=== PATIENT | female | born 1950 | race Caucasian/White ===

== ENCOUNTER 2016-12-25 15:34 | Emergency (ER) | payer OTHER ==
[~2016-12-25] VITALS: Ht 165.1 cm; Wt 80.0 kg
[2016-12-25 15:37] VITALS: BP 164/89; PULSE 74; RESP 20; TEMP 98.7
--- NOTE | 2016-12-25 15:41 | PD ---
Physical Exam Date Seen by Provider: Dec 25, 2016 Time Seen by Provider: 15:39 Data Data Last Documented VS Vital Signs Date Time Temp Pulse Resp B/P (MAP) Pulse Ox O2 Delivery O2 Flow Rate FiO2 12/25/16 15:37 98.7 74 20 164/89 (114) [facility] Supervised Visit with KALI: No Narrative Course 66-year-old female presents to the ED for evaluation of head injury just before presentation. Patient states that "a table fell on my head." Denies LOC. Patient takes an aspirin daily. Vitals reviewed. Patient seen in triage, awaiting bed placement. Ivis Guidry Dec 25, 2016 15:41
[2016-12-25] MEDS ORDERED: LAMO100 PO (17:27)
[2016-12-25] MEDS ORDERED: OXYB5TAB10 PO (17:27)
[2016-12-25] MEDS ORDERED: FOSA70TA PO (17:27)
[2016-12-25] MEDS ORDERED: VENL150T PO (17:27)
[2016-12-25] MEDS ORDERED: MIRTA15 PO (17:27)
[2016-12-25] MEDS ORDERED: LISI30TA4 PO (17:27)
[2016-12-25] MEDS ORDERED: CLON2TAB PO (17:27)
[2016-12-25] MEDS ORDERED: BACL10TA PO (17:27)
[2016-12-25] MEDS ORDERED: EPIN1INJ17 IM (17:27)
[2016-12-25] MEDS ORDERED: RISP2TAB37 PO (17:27)
[2016-12-25] MEDS ORDERED: POTA-243 PO (17:27)
[2016-12-25] MEDS ORDERED: SIMV20TA PO (17:27)
[2016-12-25] MEDS ORDERED: IBUP-1129 PO (17:27)
[2016-12-25] MEDS ORDERED: NORC5TAB PO (17:27)
[2016-12-25] MEDS ORDERED: CALC1TAB12 PO (17:27)
--- NOTE | 2016-12-25 18:01 | PD ---
HPI Chief Complaint: Skin Problem Time Seen by Provider: 17:33 Travel History International Travel<30 days: No Contact w/Intl Traveler<30days: No Traveled to known affect area: No History of Present Illness HPI 66-year-old female here for evaluation of a small laceration to her left occipital scalp. Patient was moving furniture into storage when a small end table fell from a box and struck the left side of her head. She denies loss of consciousness. Patient is not anticoagulated. Patient did not fall to the ground. She denies headache, visual changes, neck pain. Tetanus immunization is up-to-date. PFSH Past Medical History Medical History: Denies Significant Hx Social History Tobacco Use: No Allergies-Medications (Allergen,Severity, Reaction): Coded Allergies: cephalexin (Verified Allergy, Severe, 12/25/16) Reported Meds & Prescriptions Reported Meds & Active Scripts Active Reported Epinephrine Inj (Epinephrine) 0.3 Mg/0.3 Ml Pfpen 0.3 Mg IM ONCE PRN Klor-Con 10 (Potassium Chloride) 10 Meq Tab 10 Meq PO DAILY Calcium 500 +D (Calcium Carbonate-Cholecalciferol) 500-400 Mg-Unit Tab 1 Tab PO BID Fosamax (Alendronate Sodium) 70 Mg Tab 70 Mg PO Q7D Ditropan (Oxybutynin Chloride) 5 Mg Tab 5 Mg PO Q12HR [place] (Hydrocodone-Acetaminophen) 5-325 mg Tab 1 Tab PO Q4H PRN Clonazepam 2 Mg Tab 2 Mg PO BID Simvastatin 20 Mg Tab 20 Mg PO DAILY Simvastatin 20 Mg Tab 20 Mg PO DAILY Lisinopril 30 Mg Tab 30 Mg PO DAILY Lamictal (Lamotrigine) 100 Mg Tab 100 Mg PO BID Baclofen 10 Mg Tab 10 Mg PO TID Motrin Ib (Ibuprofen) 200 Mg Tablet 800 Mg PO TID Risperdal (Risperidone) 2 Mg Tab 2 Mg PO DAILY Venlafaxine ER 24 HR (Venlafaxine HCl) 150 Mg Tab 150 Mg PO DAILY Mirtazapine 15 Mg Tab 15 Mg PO HS Review of Systems Except as stated in HPI: all other systems reviewed are Neg Physical Exam Narrative GENERAL: Well-nourished, well-developed patient. SKIN: Focused skin assessment warm/dry. 2 cm laceration left occipital scalp. Bleeding well controlled. No crepitus or palpable scalp fracture. HEAD: Normocephalic. EYES: No scleral icterus. No injection or drainage. NECK: Supple, trachea midline. No JVD or lymphadenopathy. No cervical midline tenderness. CARDIOVASCULAR: Regular rate and rhythm without murmurs, gallops, or rubs. RESPIRATORY: Breath sounds equal bilaterally. No accessory muscle use. GASTROINTESTINAL: Abdomen soft, non-tender, nondistended. MUSCULOSKELETAL: No cyanosis, or edema. Data Data Last Documented VS Vital Signs Date Time Temp Pulse Resp B/P (MAP) Pulse Ox O2 Delivery O2 Flow Rate FiO2 12/25/16 15:37 98.7 74 20 164/89 (114) [facility] Medical Decision Making Medical Screen Exam Complete: Yes Emergency Medical Condition: Yes Differential Diagnosis Scalp laceration, scalp hematoma, skull fracture, ICH Narrative Course 66-year-old female presents emergency department for evaluation of a 2 cm laceration to the left occipital scalp. Patient reports a small end table fell onto her head while putting furniture and sort. She denies loss of consciousness. She denies headache. She has no neck pain. She is not anticoagulated. The laceration was stapled closed wound precautions discussed. Closed head injury precautions discussed. Patient verbalizes understanding and agrees to plan Procedures Procedure Narrative LACERATION LOCATION: Left occipital Scalp LENGTH: 2 cm NUMBER OF STITCHES/CLARA: 2 clara REPAIR: The area of the laceration was prepped with Betadine and sterilely draped. The wound was copiously irrigated and explored without evidence of foreign body, tendon injury or neurovascular injury. The wound was closed using [Clara]. This was a [single] layer repair. A sterile dressing was applied. The patient was advised to keep the dressing clean and dry. Patient tolerated the procedure well. Diagnosis Primary Impression: Scalp laceration Qualified Codes: S01.01XA - Laceration without foreign body of scalp, initial encounter Referrals: [facility] Primary Care Physician Additional Instructions: [place] need to be removed in 10 days. He can take [id number] Tylenol as needed for pain or discomfort. Return to the emergency department if he developed severe headache, visual changes, confusion, weakness or loss of sensation in the 70s. Disposition: 01 DISCHARGE HOME Condition: Stable Gely Gomez Dec 25, 2016 18:01
== END 2016-12-25 18:17 | disposition home or self-care (01) ==
LOC: NEPD 15:34
DX: S01.01XA Laceration without foreign body of scalp, initial encounter (principal); W22.03XA Walked into furniture, initial encounter; Z79.899 Other long term (current) drug therapy; Z88.8 Allergy status to other drugs, medicaments and biological substances
CPT/HCPCS: 12001

== ENCOUNTER 2017-06-24 10:26 | Emergency (ER) | payer OTHER ==
[~2017-06-24] VITALS: Ht 167.6 cm; Wt 80.0 kg
[~2017-06-24 10:26] MED LIST: BACL10TA PO; CALC1TAB12 PO; CLON2TAB PO; EPIN1INJ17 IM; FOSA70TA PO; IBUP-1129 PO; KLOR10TA PO; LAMO100 PO; LISI30TA4 PO; MIRTA15 PO; NORC5TAB PO; OXYB5TAB8 PO; RISP2TAB37 PO; SIMV20TA PO; VENL150T PO
[2017-06-24 11:20] VITALS: BP 131/84; PULSE 97; RESP 16; TEMP 98.1; O2SAT 94
[2017-06-24] MEDS ORDERED: AUGM875T3 PO (12:25)
[2017-06-24] MEDS ORDERED: FLUT1SPR5 EACH NARE (12:27)
[2017-06-24] MEDS ORDERED: DOXY100C PO (12:27)
--- NOTE | 2017-06-24 12:28 | PD ---
HPI Chief Complaint: ENT Complaint Time Seen by Provider: 12:11 Travel History International Travel<30 days: No Contact w/Intl Traveler<30days: No Traveled to known affect area: No History of Present Illness HPI 67-year-old female here with sinus pain and pressure 2 weeks. She is reporting purulent nasal discharge. Denies fever or chills. History of sinus infections. Symptom severity is moderate. Unrelieved by OTC sinus cold and flu. PFSH Past Medical History Medical History: Denies Significant Hx Anxiety: Yes Depression: Yes High Cholesterol: Yes Hypertension: Yes Musculoskeletal: Yes (CHRONIC BACK PAIN) Influenza Vaccination: Yes Past Surgical History Appendectomy: Yes Cholecystectomy: Yes Social History Alcohol Use: Yes (BEER DAILY) Tobacco Use: No Substance Use: No Allergies-Medications (Allergen,Severity, Reaction): Coded Allergies: cephalexin (Verified Allergy, Severe, RASH, 06/24/17) Reported Meds & Prescriptions Reported Meds & Active Scripts Active Reported Epinephrine Inj (Epinephrine) 0.3 Mg/0.3 Ml Pfpen 0.3 Mg IM ONCE PRN Klor-Con 10 (Potassium Chloride) 10 Meq Tab 10 Meq PO DAILY Calcium 500 +D (Calcium Carbonate-Cholecalciferol) 500-400 Mg-Unit Tab 1 Tab PO BID Fosamax (Alendronate Sodium) 70 Mg Tab 70 Mg PO Q7D Ditropan (Oxybutynin Chloride) 5 Mg Tab 5 Mg PO Q12HR [place] (Hydrocodone-Acetaminophen) 5-325 mg Tab 1 Tab PO Q4H PRN Clonazepam 2 Mg Tab 2 Mg PO BID Simvastatin 20 Mg Tab 20 Mg PO DAILY Simvastatin 20 Mg Tab 20 Mg PO DAILY Lisinopril 30 Mg Tab 30 Mg PO DAILY Lamictal (Lamotrigine) 100 Mg Tab 100 Mg PO BID Baclofen 10 Mg Tab 10 Mg PO TID Motrin Ib (Ibuprofen) 200 Mg Tablet 800 Mg PO TID Risperdal (Risperidone) 2 Mg Tab 2 Mg PO DAILY Venlafaxine ER 24 HR (Venlafaxine HCl) 150 Mg Tab 150 Mg PO DAILY Mirtazapine 15 Mg Tab 15 Mg PO HS Review of Systems Except as stated in HPI: all other systems reviewed are Neg General / Constitutional: No: Fever Eyes: No: Visual changes HENT: Positive: Congestion Cardiovascular: No: Chest Pain or Discomfort Respiratory: No: Shortness of Breath Gastrointestinal: No: Abdominal Pain Genitourinary: No: Dysuria Musculoskeletal: No: Pain Physical Exam Narrative GENERAL: Alert well-appearing 67-year-old female SKIN: Warm and dry. HEAD: Normocephalic. EYES: No injection or drainage. Ear/nose/throat: +TTP frontal and maxillary sinuses NECK: Supple, trachea midline. No lymphadenopathy. CARDIOVASCULAR: Regular rate and rhythm without murmurs, gallops, or rubs. RESPIRATORY: Breath sounds equal bilaterally. No accessory muscle use. GASTROINTESTINAL: Abdomen soft, non-tender, nondistended. Data Data Last Documented VS Vital Signs Date Time Temp Pulse Resp B/P (MAP) Pulse Ox O2 Delivery O2 Flow Rate FiO2 06/24/17 11:20 98.1 97 16 131/84 (100) 94 MDM Medical Decision Making Medical Screen Exam Complete: Yes Emergency Medical Condition: Yes Differential Diagnosis Sinusitis, allergic rhinitis, URI Narrative Course 67-year-old female here with sinusitis. She is well-appearing. Allergies to Keflex. She'll be treated with doxycycline Flonase. Diagnosis Primary Impression: Sinusitis Qualified Codes: J01.90 - Acute sinusitis, unspecified Referrals: Primary Care Physician Additional Instructions: Medication as directed. Follow-up the primary doctor. Return if he had new or worsening symptoms. Scripts Fluticasone Nasal [place] (Flonase Nasal [place]) 50 Mcg/Act [place] 50 MCG EACH NARE BID for Allergies, #1 BOTTLE 0 Refills Prov: Gely Gomez 06/24/17 Doxycycline Hyclate (Doxycycline Hyclate) 100 Mg Cap 100 MG PO BID for Infection for 7 Days, #14 CAP 0 Refills Prov: Gely Gomez 06/24/17 Disposition: 01 DISCHARGE HOME Condition: Stable Gely Gomez Jun 24, 2017 12:28
== END 2017-06-24 12:49 | disposition home or self-care (01) ==
LOC: PHEFT 10:26
DX: J32.9 Chronic sinusitis, unspecified (principal); F41.9 Anxiety disorder, unspecified; F32.9 Major depressive disorder, single episode, unspecified; E78.00 Pure hypercholesterolemia, unspecified; I10 Essential (primary) hypertension; Z79.899 Other long term (current) drug therapy; Z88.8 Allergy status to other drugs, medicaments and biological substances
CPT/HCPCS: 99283

== ENCOUNTER 2017-09-15 15:17 | Emergency (ER) | payer OTHER ==
[~2017-09-15] VITALS: Ht 167.6 cm; Wt 83.7 kg
[~2017-09-15 15:17] MED LIST changes: +DOXY100C PO; +FLUT1SPR5 EACH NARE
[2017-09-15 15:23] VITALS: BP 179/95; PULSE 70; RESP 18; TEMP 98.3; O2SAT 95
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
[2017-09-15] MEDS ORDERED: DAILTAB38 PO (15:57)
[2017-09-15] MEDS ORDERED: CLON0.5T PO (15:57)
[2017-09-15] MEDS ORDERED: FLUT50SP EACH NARE (15:57)
[2017-09-15] MEDS ORDERED: AMLO5TAB2 PO (15:57)
[2017-09-15] MEDS ORDERED: ASPI1TAB57 PO (15:57)
[2017-09-15] MEDS ORDERED: FIBE625T10 PO (15:57)
[2017-09-15] MEDS ORDERED: OMEP20TA93 PO (15:57)
[2017-09-15] MEDS ORDERED: HYDR25TA5 PO (15:57)
[2017-09-15] MEDS ORDERED: DOCU100C15 PO (15:57)
[2017-09-15] MEDS ORDERED: QUET-86 PO (15:57)
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
[2017-09-15] MEDS ORDERED: PERC5TAB12 PO (16:31)
== END 2017-09-15 16:56 | disposition home or self-care (01) ==
LOC: PHEFT 15:17
DX: S52.602A Unspecified fracture of lower end of left ulna, initial encounter for closed fracture (principal); S20.219A Contusion of unspecified front wall of thorax, initial encounter; V47.0XXA Car driver injured in collision with fixed or stationary object in nontraffic accident, initial encounter; Y92.481 Parking lot as the place of occurrence of the external cause; I10 Essential (primary) hypertension; E78.00 Pure hypercholesterolemia, unspecified; F32.9 Major depressive disorder, single episode, unspecified; F41.9 Anxiety disorder, unspecified; Z88.1 Allergy status to other antibiotic agents; Z79.899 Other long term (current) drug therapy
CPT/HCPCS: 29125; 71045; 73090

== ENCOUNTER 2018-01-26 12:08 | Inpatient (IN) ==
[2018-01-26] MEDS ORDERED: Morphine Inj 4 MG/ML Vial IV.PUSH ONE (13:18)
--- NOTE | 2018-01-26 13:34 | ED ---
HPI General Chief Complaint: Extremity Injury, Lower Stated Complaint: Broken Leg Complaint Time Seen by Provider: 01/26/18 13:03 Source: patient Mode of arrival: wheelchair Limitations: no limitations History of Present Illness HPI Narrative: 67-year-old female with PMH of HTN, GERD, HLD, anxiety, depression presents to the ED requesting admission for surgery. The patient states that she had a fall a few days ago, had pain in the left leg. She denies hitting her head or loss of consciousness in the fall. She states that she recently had a bone graft taken from the left leg and placed in the left arm. On presentation she complains of 6/10 pain in the left leg, aching, no alleviating or exacerbating factors reported. She states that she last took Percocet around 6 AM. She denies headache, dizziness, fever, chills, chest pain , palpitations, shortness of breath, abdominal pain, nausea, vomiting, dysuria. She states that she has not had anything to eat today, had a cup of water in the waiting room. She does not take blood thinners. She saw her orthopedist, Dr. De Luna, today and was told to come the emergency room for admission. Related Data Allergies Allergy/AdvReac Type Severity Reaction Status Date / Time cephalexin Allergy Severe RASH Verified 09/15/17 15:23 Review of Systems ROS: all other systems reviewed are negative PMFSH Social History Social History Recent Travel in [facility] within the Last 8 Weeks: No Recent Out of Country Travel within the Last 8 Weeks: No Exam Narrative Exam Narrative: GENERAL: Well-nourished, well-developed white female no acute distress. SKIN: Focused skin assessment warm/dry. HEAD: Atraumatic. Normocephalic. EYES: Pupils equal and round. No scleral icterus. No injection or drainage. ENT: No nasal bleeding or discharge. Mucous membranes pink and moist. NECK: Trachea midline. No JVD. CARDIOVASCULAR: Regular rate and rhythm. No murmur appreciated. RESPIRATORY: No accessory muscle use. Clear to auscultation. Breath sounds equal bilaterally. GASTROINTESTINAL: Abdomen soft, non-tender, nondistended. Hepatic and splenic margins not palpable. MUSCULOSKELETAL: No obvious deformities. No clubbing. No cyanosis. No edema. Left arm and left leg in splints. Neurovascularly intact distally on each extremity. NEUROLOGICAL: Awake and alert. No obvious cranial nerve deficits. Motor grossly within normal limits. Normal speech. PSYCHIATRIC: Appropriate mood and affect; insight and judgment normal. Course Initial Documented Vital Signs Temperature 98.5 F 01/26/18 12:19 Pulse Rate 96 H 01/26/18 12:19 Respiratory Rate 18 01/26/18 12:19 Blood Pressure 109/71 01/26/18 12:19 Pulse Oximetry 95 01/26/18 12:19 Last Documented Vital Signs Temperature 98.5 F 01/26/18 12:19 Pulse Rate 96 H 01/26/18 12:19 Respiratory Rate 18 01/26/18 12:19 Blood Pressure 109/71 01/26/18 12:19 Pulse Oximetry 95 01/26/18 12:19 Medical Decision Making MDM Narrative Medical decision making narrative: 67-year-old female with PMH of HTN, anxiety depression, HLD presents to the ED for evaluation of orthopedic injury. Patient states that she just had an outpatient procedure done on her left arm that required a bone graft from the left leg. She states that she had a fall yesterday, saw her orthopedic today and was told to come to the hospital for admission. Vitals reviewed. On exam the left upper and lower extremity are both in splints, neurovascularly intact distally. I spoke with Dr. Loredo. He states that the patient had outpatient imaging that reveals left tibia fracture. He plans surgery tomorrow. Preoperative testing and imaging ordered and pending. Patient is agreeable to admission. I spoke with who agrees to accept the patient to the medicine service. Please see orthopedic and medicine notes for disposition. Medical Screen Exam Complete: Yes Emergency Medical Condition: Yes Differential Diagnosis Differential Diagnosis: Fracture versus dislocation versus postoperative complication versus other Imaging Data Radiologist's impression: Chest X-Ray 01/26/18 13:18 CONCLUSION: 1. No evidence for infiltrate. 2. Nodular density right lower lobe. Nonemergent outpatient chest recommended. Discharge Plan Discharge Disposition Patient Disposition: 30 Still Patient Physicians Team ED Provider: Rodolfo Maldonado ED Midlevel Provider: Ivis Guidry Primary Care Provider: Giovana De La Fuente Status ED Status: Pending Admission
--- NOTE | 2018-01-26 13:48 | XR ---
EXAM DATE: 01/26/2018 1:44 PM EDT AGE/SEX: 67 years / Female INDICATIONS: Pre op chest to rule out pneumothorax, pneumonia or communicable disease. CLINICAL DATA: This is the patient's initial encounter. Patient reports that signs and symptoms have been present for 1 day and indicates a pain score of 0/10. MEDICAL/SURGICAL HISTORY: Hypertension. Fusion, lumbar. COMPARISON: [facility], CHEST SINGLE AP, 09/15/2017. . FINDINGS: A single AP view of the chest demonstrates the lungs to be symmetrically aerated without evidence of mass, infiltrate or effusion. There is however nodular density right lower lobe. The cardiomediastina l contours are unremarkable. Osseous structures are intact. Scoliosis and degenerative changes. CONCLUSION: 1. No evidence for infiltrate. 2. Nodular density right lower lobe. Nonemergent outpatient chest recommended. Electronically signed by: Darius Leslie MD 01/26/2018 1:46 PM EDT
[2018-01-26] MEDS ORDERED: Bisacodyl 10 MG Supp RECTAL PRN (13:57)
[2018-01-26] MEDS ORDERED: Acetaminophen 325 MG Tablet PO PRN (13:57)
[2018-01-26] MEDS: Sod Chloride 0.9% Inj 1,000 ML IV.CONT SCH (14:32)
--- NOTE | 2018-01-26 14:36 | XR ---
EXAM DATE: 01/26/2018 2:04 PM EDT AGE/SEX: 67 years / Female INDICATIONS: Right knee pain, fell CLINICAL DATA: This is the patient's initial encounter. Patient reports that signs and symptoms have been present for 2 days and indicates a pain score of 8/10. MEDICAL/SURGICAL HISTORY: Hypertension. Fusion, lumbar. COMPARISON: No prior exams available for comparison. FINDINGS: There are comminuted transverse fractures involving both the proximal tibial diaphysis and the fibula r neck. The distal fragment slightly posteriorly displaced on the lateral film. The patella is intact . The tibial articulating surfaces are unremarkable. CONCLUSION: Oblique fractures involving both the tibia and the fibula. Electronically signed by: Tj Mckinney MD 01/26/2018 2:34 PM EDT
[2018-01-26 14:53] LABS: Baso # (Auto) 0.1 th/mm3 (0.0-0.2); Baso % (Auto) 0.6 % (0.0-2.0); Eos # (Auto) 0.2 th/mm3 (0.0-0.4); Eos % (Auto) 2.2 % (0.0-4.0); Hematocrit 33.4 % (35.0-46.0); Hemoglobin 11.5 gm/dL (11.6-15.3); Lymph # (Auto) 1.3 th/mm3 (1.0-4.8); Lymph % (Auto) 13.9 % (9.0-44.0); Mean Corpuscular HGB Conc 34.5 % (32.0-36.0); Mean Corpuscular Volume 92.8 fL (80.0-100.0); Mean Platelet Volume 8.2 fL (7.0-11.0); Mono # (Auto) 0.9 th/mm3 (0.0-0.9); Mono % (Auto) 9.9 % (0.0-8.0); Neut # (Auto) 6.8 th/mm3 (1.8-7.7); Neut % (Auto) 73.4 % (16.0-70.0); Platelet Count 343 th/mm3 (150-450); Red Blood Count 3.61 mil/mm3 (4.00-5.30); Red Cell Distribution Width 13.5 % (11.6-17.2); White Blood Count 9.2 th/mm3 (4.0-11.0)
[2018-01-26 15:17] LABS: Alanine Aminotransferase 26 U/L (10-53); Albumin 3.9 g/dL (3.4-5.0); Alkaline Phosphatase 96 U/L (45-117); Anion Gap 10 meq/L (5-15); Aspartate Aminotransferase 35 U/L (15-37); Blood Urea Nitrogen 29 mg/dL (7-18); Calcium 9.7 mg/dL (8.5-10.1); Carbon Dioxide 28.2 meq/L (21.0-32.0); Chloride 90 meq/L (98-107); Glomerular Filtration Rate 36 mL/min (>89); Glucose,Random 99 mg/dL (74-106); Sodium 128 meq/L (136-145); Total Protein 8.2 g/dL (6.4-8.2)
[2018-01-26 15:34] LABS: Potassium 2.7 meq/L (3.5-5.1)
--- NOTE | 2018-01-26 16:21 | P.HP ---
History of Present Illness Service: Hospitalist Primary Care Physician: Giovana De La Fuente MD History of Present Illness: Ms Cervantes is a pleasant 67-year-old female with PMH of HTN, GERD, HLD, anxiety, depression who presented to the emergency department on 01/26/2018 on the advice of our orthopedic surgeon. She recently underwent a bone graft from her left leg to her left arm. She complains of significant pain in her left leg. She went to see her orthopedic surgeon who directed patient to the ED. Left knee x- ray shows oblique fractures. Patient denies any chest pain, shortness of breath , cough, fever, chills. Denies any abdominal pain, dysuria, hematuria. No changes in bowel or bladder habits. PMH: Hypertension, hyperlipidemia, anxiety/depression PSH: Back surgery, bunionectomy Social history: Does not smoke, uses alcohol socially Family history: No family history of Alzheimer's or Parkinson's. Inpatient Certification: I certify that the inpatient services were ordered in accordance with Medicare regulations governing the order. This includes certification that hospital inpatient services are reasonable and necessary and in the case of services not specified as inpatient-only under 42 CFR 419.22(n), that they are appropriately provided as inpatient services in accordance to with the 2-midnight benchmark under 43 CFR 412.3(e) Estimated Total Length of Stay (Days): 3 Plans for Post Hospital Care: SNF Review of Systems All other systems reviewed negative except as stated in HPI PMFSH - History History Provided By: Patient - Medical History Medical History: Medical History (Last Reviewed 01/26/18 @ 16:57 by Ashley Palma RN) Failed allograft of bone H/O: hysterectomy - Tobacco History Second Hand Smoke Exposure: No Smoking Status: Never smoker - Alcohol History How Often Do You Have a Drink Containing Alcohol: 2 to 4 times a month - Substance Use History Substance History: No History of Abuse - Travel History Recent Travel in the [place] Within the Last 8 Weeks: No Recent Travel Out of the Country Within the Last 8 Weeks: No - Immunization History Tetanus Immunization: <5 Years Medications and Allergies Active Medications: Active Medications Acetaminophen (Tylenol) 650 mg PO Q4H PRN PRN Reason: Headache, fever, pain 1-4 Hydrocodone Bitart/Acetaminophen ([place] 5/325) 1 tab PO Q6H PRN PRN Reason: Pain 5-10 Al Hydroxide/Mg Hydroxide (Milk Of Magnesia Liq) 30 ml PO Q12H PRN PRN Reason: Mild Constipation Bisacodyl (Dulcolax Supp) 10 mg RECTAL DAILY PRN PRN Reason: SEVERE CONSITIPATION Sodium Chloride (Ns Inj) 1,000 mls @ 100 mls/hr IV.CONT .Q10H JOSUE Last Admin: 01/26/18 14:32 Dose: 100 mls/hr Lactulose (Lactulose Liq) 30 ml PO DAILY PRN PRN Reason: SEVERE CONSITIPATION Morphine Sulfate (Morphine Inj) 4 mg IV.PUSH Q4H PRN PRN Reason: BREAKTHROUGH PAIN Ondansetron HCl (Zofran Inj) 4 mg IV.PUSH Q6H PRN PRN Reason: NAUSEA OR VOMITING Sennosides (Senokot) 17.2 mg PO Q12H PRN PRN Reason: Moderate Constipation Allergies Allergy/AdvReac Type Severity Reaction Status Date / Time cephalexin Allergy Severe RASH Verified 01/26/18 15:37 Home Medications Medication Instructions Recorded Confirmed Type Calcium 600 + D(3) 600 mg PO DAILY 01/26/18 01/26/18 History alendronate 70 mg PO WEEKLY 01/26/18 01/26/18 History amlodipine 10 mg PO DAILY 01/26/18 01/26/18 History aspirin [Aspir-81] 81 mg PO DAILY 01/26/18 01/26/18 History baclofen 10 mg PO TID 01/26/18 01/26/18 History clonazepam 0.5 mg PO BID 01/26/18 01/26/18 History docusate sodium 100 mg PO DAILY 01/26/18 01/26/18 History fexofenadine [Sowmya Allergy] 180 mg PO DAILY 01/26/18 01/26/18 History ibuprofen 800 mg PO HS 01/26/18 01/26/18 History lamotrigine 100 mg PO BID 01/26/18 01/26/18 History mirtazapine 15 mg PO HS 01/26/18 01/26/18 History omeprazole 20 mg PO DAILY 01/26/18 01/26/18 History oxybutynin chloride 5 mg PO TID 01/26/18 01/26/18 History quetiapine 50 mg PO BID 01/26/18 01/26/18 History simvastatin 20 mg PO QPM 01/26/18 01/26/18 History venlafaxine 150 mg PO DAILY 01/26/18 01/26/18 History Exam Vital signs: Vital Signs 01/26/18 12:19 01/26/18 14:06 Temperature 98.5 F Pulse Rate 96 H 91 H Respiratory Rate 18 18 Blood Pressure 109/71 158/87 H Pulse Oximetry 95 97 Intake & Output 01/25/18 01/26/18 01/26/18 18:59 06:59 18:59 Weight 81.647 kg Narrative: GENERAL: This is a well-nourished, well-developed patient, in no apparent distress. SKIN: No rashes, ecchymoses or lesions. Warm and dry. HEAD: Atraumatic. Normocephalic. No temporal or scalp tenderness. EYES: Pupils equal round and reactive. No injection or drainage. ENT: Nose without bleeding, purulent drainage or septal hematoma. Airway patent. NECK: Trachea midline. No lymphadenopathy. Supple, nontender, no meningeal signs. CARDIOVASCULAR: Regular rate and rhythm without murmurs, gallops, or rubs. No JVD. RESPIRATORY: Clear to auscultation. Breath sounds equal bilaterally. No wheezes , rales, or rhonchi. GASTROINTESTINAL: Abdomen soft, non-tender, nondistended. No guarding. MUSCULOSKELETAL: Extremities without clubbing, cyanosis, or edema. Left arm and left leg in splints. NEUROLOGICAL: Awake and alert. Cranial nerves II through XII intact. No focal neurological deficits. Normal speech. Results - Labs CBC & Chem 7: 01/26/18 14:30 01/26/18 14:30 Labs: Laboratory Results - last 24 hr 01/26/18 01/26/18 14:30 14:30 WBC 9.2 RBC 3.61 L Hgb 11.5 L Hct 33.4 L MCV 92.8 MCH 32.0 MCHC 34.5 RDW 13.5 Plt Count 343 MPV 8.2 Neut % (Auto) 73.4 H Lymph % (Auto) 13.9 [place] % (Auto) 9.9 H Eos % (Auto) 2.2 Baso % (Auto) 0.6 Neut # (Auto) 6.8 Lymph # (Auto) 1.3 [place] # (Auto) 0.9 Eos # (Auto) 0.2 Baso # (Auto) 0.1 WBC Differential . Differential Comment Auto diff final Sodium 128 L Potassium 2.7 L* Chloride 90 L Carbon Dioxide 28.2 Anion Gap 10 BUN 29 H Creatinine 1.47 H Estimated GFR 36 L Random Glucose 99 Calcium 9.7 Total Bilirubin 0.5 AST 35 ALT 26 Alkaline Phosphatase 96 Total Protein 8.2 Albumin 3.9 - Imaging Impressions Chest X-Ray 01/26/18 13:18 CONCLUSION: 1. No evidence for infiltrate. 2. Nodular density right lower lobe. Nonemergent outpatient chest recommended. Knee X-Ray 01/26/18 13:51 CONCLUSION: Oblique fractures involving both the tibia and the fibula. Caprini VTE Risk Assessment Caprini VTE Risk Assessment: Moderate/High Risk (score >= 2) Caprini Risk Assessment Model: Point Value = 1 Point Value = 2 Point Value = 3 Point Value = 5 Age 41-60 Minor surgery BMI > 25 kg/m2 Swollen legs Varicose veins or History of unexplained or recurrent spontaneous Oral contraceptives or hormone replacement Sepsis (< 1 month) Serious lung disease, including pneumonia (< 1 month) Abnormal pulmonary function Acute myocardial infarction Congestive heart failure (< 1 month) History of inflammatory bowel disease Medical patient at bed rest Age 61-74 Arthroscopic surgery Major open surgery (> 45 min) Laparoscopic surgery (> 45 min) Malignancy Confined to bed (> 72 hours) Immobilizing plaster cast Central venous access Age >= 75 History of VTE Family history of VTE Factor V Leiden Prothrombin [id number] Lupus anticoagulant Anticardiolipin antibodies Elevated serum homocysteine Heparin-induced thrombocytopenia Other congenital or acquired thrombophilia Stroke (< 1 month) Elective arthroplasty Hip, pelvis, or leg fracture Acute spinal cord injury (< 1 month) Prophylaxis Regimen: Total Risk Factor Score Risk Level Prophylaxis Regimen 0-1 Low Early ambulation 2 Moderate Order ONE of the following: *Sequential Compression Device (SCD) *Heparin 5000 units SQ BID 3-4 Higher Order ONE of the following medications: *Heparin 5000 units SQ TID *Enoxaparin/Lovenox 40 mg SQ daily (WT < 150 kg, CrCl > 30 mL/min) *Enoxaparin/Lovenox 30 mg SQ daily (WT < 150 kg, CrCl > 10-29 mL/min) *Enoxaparin/Lovenox 30 mg SQ BID (WT < 150 kg, CrCl > 30 mL/min) AND/OR *Sequential Compression Device (SCD) 5 or more Highest Order ONE of the following medications: *Heparin 5000 units SQ TID (Preferred with Epidurals) *Enoxaparin/Lovenox 40 mg SQ daily (WT < 150 kg, CrCl > 30 mL/min) *Enoxaparin/Lovenox 30 mg SQ daily (WT < 150 kg, CrCl > 10-29 mL/min) *Enoxaparin/Lovenox 30 mg SQ BID (WT < 150 kg, CrCl > 30 mL/min) AND *Sequential Compression Device (SCD) Assessment and Plan - Plan Ms. Cervantes is a pleasant 67-year-old female with a history of hypertension, hyperlipidemia, anxiety/depression who presented to the emergency department on the advice of her orthopedic surgeon due to left leg pain. Workup indicated left tibia and fibula fracture. Oblique fracture of left tibia and fibula Acetaminophen, Cornelius, morphine for pain management Bowel regimen Orthopedic surgery consult Severe hypokalemia Probable acute kidney injury Hyponatremia At the time of this examination, potassium labs were not available. We started replacing potassium IV and p.o. in the evening. We will check magnesium level, if it is below 2.0 we will replace with IV magnesium sulfate Continue IV fluid. Obtain BMP in the morning. Hypertension Hyperlipidemia GERD Anxiety/depression Continue home medications amlodipine, Seroquel, venlafaxine, PPI, statin Full code. SCDs. DVT prophylaxis when okay with orthopedic surgery.
[2018-01-26] MEDS ORDERED: Chlorhexidine Gluconate 2% 1 Pack (2 Cloths) TOPICAL ONE (19:07)
[2018-01-26] MEDS ORDERED: Metoprolol Tartrate 25 MG Tablet PO ONE (19:07)
[2018-01-26] MEDS ORDERED: Sodium Chlor 0.9% Inj 500 ML IV.SIG ONE (20:00)
[2018-01-26 20:16] LABS: Bilirubin,Urine Negative (Negative); Clarity,Urine Clear (Clear); Color,Urine Yellow (Yellw/Straw); Glucose,Urine (UA) Negative (Negative); Hyaline Casts,Urine 1 /lpf (0-3); Leukocyte Esterase,Urine Small (Negative); Mucus,Urine Few /lpf (Occasional); Nitrite,Urine Negative (Negative); Specific Gravity,Urine 1.009 (1.002-1.035); Squamous Epithelial Cell,Urine <1 /hpf (0-5)
[2018-01-26] MEDS ORDERED: Potassium Chloride 10 MEQ ER Capsule PO ONE (20:53)
[2018-01-26] MEDS: Morphine Inj 4 MG/ML Vial IV.PUSH PRN (21:27)
[2018-01-26] MEDS: Potassium Chlor 20 mEq Premix 20 MEQ/100 ML PIGGYBACK IV.SIG SCH ×2 (21:28→23:56)
[2018-01-26] MEDS ORDERED: clonazePAM 0.5 MG Tablet PO ONE (22:45)
[2018-01-26] MEDS ORDERED: QUEtiapine 25 MG Tablet PO ONE (22:46)
[2018-01-27] MEDS: Potassium Chlor 20 mEq Premix 20 MEQ/100 ML PIGGYBACK IV.SIG SCH ×2 (01:44→03:56)
[2018-01-27] MEDS: Sod Chloride 0.9% Inj 1,000 ML IV.CONT SCH (01:53)
[2018-01-27] MEDS: Morphine Inj 4 MG/ML Vial IV.PUSH PRN (04:02)
[2018-01-27 06:01] LABS: Calcium 8.4 mg/dL (8.5-10.1); Carbon Dioxide 24.9 meq/L (21.0-32.0); Magnesium 2.4 mg/dL (1.5-2.5); Potassium 3.6 meq/L (3.5-5.1)
[2018-01-27] MEDS ORDERED: Sugammadex Inj 200 MG/2 ML Vial IV.PUSH ONE (06:52)
[2018-01-27] MEDS ORDERED: Lidocaine PF 1% Inj 5 ML Syringe OTHER ONE (07:23)
[2018-01-27] MEDS ORDERED: Phenylephrine/NS 1000 MCG/10ML Syringe IV.PUSH ONE (07:23)
--- NOTE | 2018-01-27 07:27 | P.CONOP ---
[facility] Orthopedics Consult Note - [facility] Consult date: 01/27/18 Chief complaint: Left Tibia Fracture Narrative: This patient is well-known to me. 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 The patient had been able to ambulate over the weekend. However, on Tuesday she was standing felt a crack in her knee and developed significant pain. She presented to the emergency room where there was a negative ultrasound of her leg. She presented back to the office and x-rays were taken showing she had a proximal tibia fracture which was displaced. She was sent to the ER for urgent surgical management of this condition. She was admitted and was seen by the internal medicine physician. PMH: Hypertension, hyperlipidemia, anxiety/depression PSH: Back surgery, bunionectomy Social history: Does not smoke, uses alcohol socially Family history: No family history of Alzheimer's or Parkinson's. [facility] - History History Provided By: Patient - Medical History Medical History: Medical History (Last Reviewed 01/26/18 @ 16:57 by Ashley Palma RN) Failed allograft of bone H/O: hysterectomy - Tobacco History Second Hand Smoke Exposure: No Smoking Status: Never smoker - Alcohol History How Often Do You Have a Drink Containing Alcohol: 2 to 4 times a month - Substance Use History Substance History: No History of Abuse - Travel History Recent Travel in the [place] Within the Last 8 Weeks: No Recent Travel Out of the Country Within the Last 8 Weeks: No - Immunization History Tetanus Immunization: <5 Years Hx Influenza Vaccine This Season: No Medications and Allergies Active Medications: Active Medications Acetaminophen (Tylenol) 650 mg PO Q4H PRN PRN Reason: Headache, fever, pain 1-4 Hydrocodone Bitart/Acetaminophen ([place] 5/325) 1 tab PO Q6H PRN PRN Reason: Pain 5-10 Last Admin: 01/26/18 17:32 Dose: 1 tab Al Hydroxide/Mg Hydroxide (Milk Of Magnlive Liq) 30 ml PO Q12H PRN PRN Reason: Mild Constipation Amlodipine Besylate (Norvasc) 10 mg PO DAILY JOSUE Bisacodyl (Dulcolax Supp) 10 mg RECTAL DAILY PRN PRN Reason: SEVERE CONSITIPATION Calcium/Vitamin D (Oscal With D 250/125 Mg) 2 tab PO DAILY JOSUE Clonazepam (Klonopin) 0.5 mg PO BID JOSUE Sodium Chloride (Ns Inj) 1,000 mls @ 100 mls/hr IV.CONT .Q10H JOSUE Last Admin: 01/27/18 01:53 Dose: 100 mls/hr Lactated Ringer's (Lr 1000 Ml Inj) 1,000 mls @ 30 mls/hr IV.SIG .Q24H JOSUE Stop: 01/27/18 19:14 Sodium Chloride (Ns Inj) 500 mls @ 30 mls/hr IV.SIG .Q10H ONE Stop: 01/27/18 12:39 Lactulose (Lactulose Liq) 30 ml PO DAILY PRN PRN Reason: SEVERE CONSITIPATION Morphine Sulfate (Morphine Inj) 4 mg IV.PUSH Q4H PRN PRN Reason: BREAKTHROUGH PAIN Last Admin: 01/27/18 04:02 Dose: 4 mg Ondansetron HCl (Zofran Inj) 4 mg IV.PUSH Q6H PRN PRN Reason: NAUSEA OR VOMITING Pantoprazole Sodium (Protonix) 20 mg PO DAILY [facility] Pravastatin Sodium (Pravachol) 40 mg PO DAILY@1800 [facility] Quetiapine Fumarate (Seroquel) 50 mg PO BID [facility] Sennosides (Senokot) 17.2 mg PO Q12H PRN PRN Reason: Moderate Constipation Venlafaxine HCl (Effexor Xr) 150 mg PO DAILY [facility] Allergies Allergy/AdvReac Type Severity Reaction Status Date / Time cephalexin Allergy Severe RASH Verified 01/26/18 15:37 Home Medications Medication Instructions Recorded Confirmed Type Calcium 600 + D(3) 600 mg PO DAILY 01/26/18 01/26/18 History alendronate 70 mg PO WEEKLY 01/26/18 01/26/18 History amlodipine 10 mg PO DAILY 01/26/18 01/26/18 History aspirin [Aspir-81] 81 mg PO DAILY 01/26/18 01/26/18 History baclofen 10 mg PO TID 01/26/18 01/26/18 History clonazepam 0.5 mg PO BID 01/26/18 01/26/18 History docusate sodium 100 mg PO DAILY 01/26/18 01/26/18 History fexofenadine [Sowmya Allergy] 180 mg PO DAILY 01/26/18 01/26/18 History ibuprofen 800 mg PO HS 01/26/18 01/26/18 History lamotrigine 100 mg PO BID 01/26/18 01/26/18 History mirtazapine 15 mg PO HS 01/26/18 01/26/18 History omeprazole 20 mg PO DAILY 01/26/18 01/26/18 History oxybutynin chloride 5 mg PO TID 01/26/18 01/26/18 History quetiapine 50 mg PO BID 01/26/18 01/26/18 History simvastatin 20 mg PO QPM 01/26/18 01/26/18 History venlafaxine 150 mg PO DAILY 01/26/18 01/26/18 History Exam Vital signs: Vital Signs 01/26/18 12:19 01/26/18 14:06 01/26/18 16:45 Temperature 98.5 F 98.4 F Pulse Rate 96 H 91 H 89 Respiratory Rate 18 18 20 Blood Pressure 109/71 158/87 H 146/80 H Pulse Oximetry 95 97 98 01/26/18 19:05 01/26/18 21:29 01/26/18 23:30 Temperature 98.0 F 98.2 F Pulse Rate 90 81 Respiratory Rate 18 18 17 Blood Pressure 99/58 L 116/62 Pulse Oximetry 94 L 94 L 01/27/18 04:04 01/27/18 04:30 01/27/18 06:28 Temperature 97.5 F L 97.7 F Pulse Rate 85 93 H Respiratory Rate 18 17 18 Blood Pressure 111/59 L 141/75 H Pulse Oximetry 93 L 94 L Intake & Output 01/26/18 01/27/18 01/27/18 18:59 06:59 18:59 Intake Total 1640 / 1640 Output Total 300 / 300 700 / 700 Balance -300 / -300 940 / 940 Weight 92.7 kg 92.7 kg Intake: IV 1400 / 1400 NS Inj 1,000 ML @ 100 mls/hr IV 1000 / 1000 .CONT .Q10H JOSUE Rx#:[id number] KCl 20 mEq Premix Inj 20 meq In 400 / 400 100 ml @ 50 mls/hr IV.SIG Q2H JOSUE Rx#:[id number] Oral 240 / 240 Output: Urine 300 / 300 700 / 700 Other: # Voids 1 1 Date of Last Bowel Movement 01/24/18 01/26/18 Weight On Admission 92.7 kg Narrative: The left lower extremity is currently splinted. She can move the toes. There is brisk capillary refill about the toes. Results - Labs Result Diagrams: 01/26/18 14:30 01/27/18 04:47 Labs: Laboratory Results - last 24 hr 01/26/18 01/26/18 01/26/18 14:30 14:30 14:30 WBC 9.2 RBC 3.61 L Hgb 11.5 L Hct 33.4 L MCV 92.8 MCH 32.0 MCHC 34.5 RDW 13.5 Plt Count 343 MPV 8.2 Neut % (Auto) 73.4 H Lymph % (Auto) 13.9 [place] % (Auto) 9.9 H Eos % (Auto) 2.2 Baso % (Auto) 0.6 Neut # (Auto) 6.8 Lymph # (Auto) 1.3 [place] # (Auto) 0.9 Eos # (Auto) 0.2 Baso # (Auto) 0.1 WBC Differential . Differential Comment Auto diff final Sodium 128 L Potassium 2.7 L* Chloride 90 L Carbon Dioxide 28.2 Anion Gap 10 BUN 29 H Creatinine 1.47 H Estimated GFR 36 L Random Glucose 99 Calcium 9.7 Magnesium 2.5 Total Bilirubin 0.5 AST 35 ALT 26 Alkaline Phosphatase 96 Total Protein 8.2 Albumin 3.9 Urine Color Urine Clarity Urine pH Ur Specific [place] Urine Protein Urine Glucose (UA) Urine Ketones Urine Occult Blood Urine Nitrate Urine Bilirubin Urine Urobilinogen Ur Leukocyte Esterase Urine RBC Urine WBC Ur Squamous Epith Cells Hyaline Casts Urine Mucus Micro UA Comment Ur Microscopic Review Urine Culture Comments 01/26/18 01/27/18 18:00 04:47 WBC RBC Hgb Hct MCV MCH MCHC RDW Plt Count MPV Neut % (Auto) Lymph % (Auto) [place] % (Auto) Eos % (Auto) Baso % (Auto) Neut # (Auto) Lymph # (Auto) [place] # (Auto) Eos # (Auto) Baso # (Auto) WBC Differential Differential Comment Sodium 137 Potassium 3.6 D Chloride 102 D Carbon Dioxide 24.9 Anion Gap 10 BUN 21 H Creatinine 1.05 H Estimated GFR 52 L Random Glucose 101 Calcium 8.4 L D Magnesium 2.4 Total Bilirubin AST ALT Alkaline Phosphatase Total Protein Albumin Urine Color Yellow Urine Clarity Clear Urine pH 6.0 Ur Specific [place] 1.009 Urine Protein 30 H Urine Glucose (UA) Negative Urine Ketones Negative Urine Occult Blood Small H Urine Nitrate Negative Urine Bilirubin Negative Urine Urobilinogen Less than 2 Ur Leukocyte Esterase Small H Urine RBC Less than 1 Urine WBC 8 H Ur Squamous Epith Cells <1 Hyaline Casts 1 Urine Mucus Few H Micro UA Comment Culture not ind Ur Microscopic Review Not Reportable Urine Culture Comments Culture not ind - Diagnostic results Imaging: Impressions Chest X-Ray 01/26/18 13:18 CONCLUSION: 1. No evidence for infiltrate. 2. Nodular density right lower lobe. Nonemergent outpatient chest recommended. Knee X-Ray 01/26/18 13:51 CONCLUSION: Oblique fractures involving both the tibia and the fibula. I have reviewed the images for this radiology study. I agree with the interpretation given by the radiologist. Assessment and Plan - Assessment and Plan Left proximal tibia fracture, displaced and angulated. We discussed that this is a serious condition effecting this patient's extremity. Nonoperative and operative options were discussed and reviewed. Potential consequences of both of these options were reviewed. The patient has decided to move forward with surgical management for the left tibia. We discussed different plans that would be approached in the operating room. First plan would be for closed reduction and fixation with an intramedullary kimi. However if we are not able to obtain adequate reduction then we do have the option for a formal open reduction and internal fixation with plates and screws. We discussed postoperative course in detail. We discussed that she would need to be nonweightbearing on the left lower extremity following surgery. We did discuss also have this will affect her ability to ambulate since she did have recent surgery on the left ulna which is currently splinted and she would not be able to use a traditional walker on the left side. The patient is at increased risk for DVT and the patient would require DVT prophylaxis postoperatively. The patient understands this. We did discuss the risks and benefits of surgical management. The risks of surgery include, but are not limited to, injury to nerves, blood vessels, bleeding, infection, non- healing; loss of range on motion, dysfunction or weakness of the associated joints; blood clots, pneumonia, stroke, heart attack, and . - Attending Attestation Attending Attestation: A mid level provider in my office, nurse practitioner or PA, may see this patient on a follow up basis and continue to implement the plan including: starting or adjusting medications, injections of muscle, tendons, bursa or joints, cast application, orthotic or brace application, physical therapy, further radiographic studies including X-ray, MRI, CT, ultrasound or bone scan , vascular studies, neurological studies, or other specialist consultations, and proceeding with surgical management as appropriate.
[2018-01-27] MEDS ORDERED: Clindamycin Inj 900 MG/6 ML Vial ONE (07:39)
[2018-01-27] MEDS ORDERED: ALENDRONATE 70 MG PO SCH (09:45)
[2018-01-27] MEDS ORDERED: Bisacodyl 10 MG Supp RECTAL PRN (09:50)
[2018-01-27] MEDS ORDERED: Post-op Orders (for Pharmacy) OTHER STA (09:50)
[2018-01-27] MEDS ORDERED: Morphine Sulfate Inj 2 MG/ML Vial IV.PUSH PRN (09:50)
[2018-01-27] MEDS ORDERED: Zolpidem Tartrate 5 MG Tablet PO PRN (09:50)
[2018-01-27] MEDS ORDERED: Aluminum/Magnesium/Simethacone Susp 30 ML UDC PO PRN (09:50)
--- NOTE | 2018-01-27 10:00 | XR ---
EXAM DATE: 01/27/2018 9:51 AM EDT AGE/SEX: 67 years / Female INDICATIONS: Left ORIF left tibia/fibula. CLINICAL DATA: This is the patient's initial encounter. Patient reports that signs and symptoms have been present for 1 day and indicates a pain score of Nonresponsive. MEDICAL/SURGICAL HISTORY: Non-responsive. Non-responsive. COMPARISON: [facility] [place], KNEE LIMITED LEFT , 01/26/2018. . FINDINGS: 13 spot images obtained in the operating room during a procedure demonstrates an antegrade intramedul arian kimi with proximal and distal interlocking screws traversing the comminuted proximal left tibial metadiaphyseal fracture. There is a comminuted displaced fracture of the fibula as well. CONCLUSION: Improved anatomic alignment following left tibia ORIF, as above. Electronically signed by: Moises Bolanos MD 01/27/2018 9:59 AM EDT
--- NOTE | 2018-01-27 10:05 | P.OP ---
Preoperative Diagnosis: Left comminuted proximal tibial shaft fracture Postoperative Diagnosis: Same Date of procedure: 01/27/18 Procedure: Left tibia fracture fixation with intramedullary nail [facility]est[facility] Surgeon: Zeb De Luna MD Music Typographer: EDGARDO Ratliff The surgical procedure was assisted by my Advanced Registered Nurse Practitioner. My OIL EXPERT presence was necessary throughout this case for the manipulation and positioning of the surgical extremity. My OIL EXPERT was assisting me throughout the duration of this procedure. The skill set of an Advance Registered Nurse Practitioner was medically necessary to complete this procedure. During the surgical case, the rn medical surgical was working at the back table and the Advance Registered Nurse Practitioner was directly assisting me. Operation and Findings: Implants: Synthes tibal nail, size: 345 x 12 Estimated blood loss: 300 cc The patient received intravenous clindamycin and vancomycin. After the appropriate anesthesia was administered, the patient was prepped and draped in the supine position in the usual sterile fashion. Skin assessment showed mild to moderate diffuse swelling. Previous medial incision was having a little bit of serosanguineous drainage with no erythema or purulence. We made incision proximal to the patella. We carefully dissected down to the quadriceps tendon. An in-line longitudinal split to the quadriceps tendon was completed. The capsule of the knee was entered. We placed the smooth trocar within the knee joint down to the proximal tibia, protecting the patella and trochlea during the case. We then reduced the tibia fracture manually and under fluoroscopic imaging. We were able to achieve essentially anatomic alignment with the closed reduction. We held this reduced in anatomic alignment during reaming. A ball-tipped guidewire was placed into the tibial shaft, passing the fracture site. This was placed down to the distal physeal line of the tibia. We then sequentially reamed the tibia to 1 mm larger than the implanted tibial nail. We obtained good cortical chatter. We measured the appropriate length for the tibial nail. We then passed the tibial nail into the medullary canal of the tibia. While we were doing this we found that the fracture significantly displaced due to forces from the nail. We remove the nail and placed a blocking wire. We put the nail back into position and found better alignment but still fairly significant displacement. We remove the nail again and placed a second blocking wire. This time we had overall much better alignment. There was only mild displacement on the lateral view with no angulation in the AP view was anatomic with no angulation. We did make a separate incision to place a ball spike pusher on the anterior aspect of the proximal tibia near the tibial tubercle but this did not further reduce the fracture at all. The nail was placed essentially flush to the proximal bone so that we could use as many of the proximal screws as possible. The nail was secured proximally with 4 screws, using the associated jig as a guide.We removed the jig and placed in an Which helped create the most proximal screw into a locking screw. We used the perfect [place] technique distally to visualize the distal tibial screw holes. We placed 1 screw distally. We thoroughly irrigated the incisions including a lavage of the arthrotomy site proximally. The quadriceps split was closed with a #1 Vicryl. The remaining incisions were closed with #2-0 Vicryl, followed by clara. We placed a knee immobilizer on the leg. 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 Chemical DVT prophylaxis will be performed with Lovenox for 3 weeks followed by aspirin for 1 month.
[2018-01-27] MEDS ORDERED: fentaNYL Citrate Inj 100 MCG/2 ML Ampul ONE (10:11)
[2018-01-27] MEDS ORDERED: Morphine Inj 4 MG/ML Vial ONE (10:12)
[2018-01-27] MEDS: Venlafaxine XR 75 MG Capsule PO SCH (12:35)
[2018-01-27] MEDS: Calcium/Vitamin D 250/125 MG Tablet PO SCH (12:35)
[2018-01-27] MEDS: clonazePAM 0.5 MG Tablet PO SCH ×2 (12:36→21:45)
[2018-01-27] MEDS: Pantoprazole Sodium 20 MG DR Tablet PO SCH (12:36)
[2018-01-27] MEDS: amLODIPine 10 MG Tablet PO SCH (12:37)
[2018-01-27] MEDS: QUEtiapine 25 MG Tablet PO SCH ×2 (12:37→21:45)
--- NOTE | 2018-01-27 12:56 | P.PN ---
Subjective Interval history: Follow up for left comminuted proximal tibial shaft fracture. Patient is status post surgical intervention. Patient is currently doing well. No fever or chills. Physical Exam Vital signs: Vital Signs 01/26/18 14:06 01/26/18 16:45 01/26/18 19:05 Temperature 98.4 F 98.0 F Pulse Rate 91 H 89 90 Respiratory Rate 18 20 18 Blood Pressure 158/87 H 146/80 H 99/58 L Pulse Oximetry 97 98 94 L 01/26/18 21:29 01/26/18 23:30 01/27/18 04:04 Temperature 98.2 F Pulse Rate 81 Respiratory Rate 18 17 18 Blood Pressure 116/62 Pulse Oximetry 94 L 01/27/18 04:30 01/27/18 06:28 01/27/18 10:04 Temperature 97.5 F L 97.7 F 98.7 F Pulse Rate 85 93 H 89 Respiratory Rate 17 18 14 Blood Pressure 111/59 L 141/75 H 108/66 Pulse Oximetry 93 L 94 L 93 L 01/27/18 10:15 01/27/18 10:30 01/27/18 10:45 Temperature Pulse Rate 89 85 79 Respiratory Rate 14 17 16 Blood Pressure 102/58 L 105/55 L 102/55 L Pulse Oximetry 90 L 93 L 92 L 01/27/18 11:00 01/27/18 11:45 01/27/18 12:00 Temperature 98.8 F 97.8 F Pulse Rate 79 79 89 Respiratory Rate 16 16 14 Blood Pressure 106/59 L 102/55 L 112/59 L Pulse Oximetry 94 L 93 L 92 L Intake & Output 01/26/18 01/27/18 01/27/18 18:59 06:59 18:59 Intake Total 1640 / 1640 1000 / 1000 Output Total 300 / 300 700 / 700 100 / 100 Balance -300 / -300 940 / 940 900 / 900 Weight 92.7 kg 92.7 kg Intake: IV 1400 / 1400 NS Inj 1,000 ML @ 100 mls/hr IV 1000 / 1000 .CONT .Q10H JOSUE Rx#:[id number] KCl 20 mEq Premix Inj 20 meq In 400 / 400 100 ml @ 50 mls/hr IV.SIG Q2H JOSUE Rx#:[id number] Oral 240 / 240 Anesthesia Amount 1000 / 1000 Output: Urine 300 / 300 700 / 700 Estimated Blood Loss 100 / 100 Other: # Voids 1 1 Date of Last Bowel Movement 01/24/18 01/26/18 Weight On Admission 92.7 kg Narrative: GENERAL: Alert, oriented x3, NAD. SKIN: Warm and dry. HEAD: Normocephalic. EYES: No scleral icterus. No injection or drainage. NECK: Supple, trachea midline. No JVD or lymphadenopathy. CARDIOVASCULAR: Regular rate and rhythm without murmurs, gallops, or rubs. RESPIRATORY: Breath sounds equal bilaterally. No accessory muscle use. GASTROINTESTINAL: Abdomen soft, non-tender, nondistended. MUSCULOSKELETAL: No cyanosis, or edema. Status post left lower extremity surgery. BACK: Nontender without obvious deformity. No CVA tenderness. Results - Labs CBC & Chem 7: 01/26/18 14:30 01/27/18 04:47 Laboratory Results - last 24 hr 01/26/18 01/26/18 01/26/18 14:30 14:30 14:30 WBC 9.2 RBC 3.61 L Hgb 11.5 L Hct 33.4 L MCV 92.8 MCH 32.0 MCHC 34.5 RDW 13.5 Plt Count 343 MPV 8.2 Neut % (Auto) 73.4 H Lymph % (Auto) 13.9 [place] % (Auto) 9.9 H Eos % (Auto) 2.2 Baso % (Auto) 0.6 Neut # (Auto) 6.8 Lymph # (Auto) 1.3 [place] # (Auto) 0.9 Eos # (Auto) 0.2 Baso # (Auto) 0.1 WBC Differential . Differential Comment Auto diff final Sodium 128 L Potassium 2.7 L* Chloride 90 L Carbon Dioxide 28.2 Anion Gap 10 BUN 29 H Creatinine 1.47 H Estimated GFR 36 L Random Glucose 99 Calcium 9.7 Magnesium 2.5 Total Bilirubin 0.5 AST 35 ALT 26 Alkaline Phosphatase 96 Total Protein 8.2 Albumin 3.9 Urine Color Urine Clarity Urine pH Ur Specific [place] Urine Protein Urine Glucose (UA) Urine Ketones Urine Occult Blood Urine Nitrate Urine Bilirubin Urine Urobilinogen Ur Leukocyte Esterase Urine RBC Urine WBC Ur Squamous Epith Cells Hyaline Casts Urine Mucus Micro UA Comment Ur Microscopic Review Urine Culture Comments 01/26/18 01/27/18 18:00 04:47 WBC RBC Hgb Hct MCV MCH MCHC RDW Plt Count MPV Neut % (Auto) Lymph % (Auto) [place] % (Auto) Eos % (Auto) Baso % (Auto) Neut # (Auto) Lymph # (Auto) [place] # (Auto) Eos # (Auto) Baso # (Auto) WBC Differential Differential Comment Sodium 137 Potassium 3.6 D Chloride 102 D Carbon Dioxide 24.9 Anion Gap 10 BUN 21 H Creatinine 1.05 H Estimated GFR 52 L Random Glucose 101 Calcium 8.4 L D Magnesium 2.4 Total Bilirubin AST ALT Alkaline Phosphatase Total Protein Albumin Urine Color Yellow Urine Clarity Clear Urine pH 6.0 Ur Specific [place] 1.009 Urine Protein 30 H Urine Glucose (UA) Negative Urine Ketones Negative Urine Occult Blood Small H Urine Nitrate Negative Urine Bilirubin Negative Urine Urobilinogen Less than 2 Ur Leukocyte Esterase Small H Urine RBC Less than 1 Urine WBC 8 H Ur Squamous Epith Cells <1 Hyaline Casts 1 Urine Mucus Few H Micro UA Comment Culture not ind Ur Microscopic Review Not Reportable Urine Culture Comments Culture not ind - Imaging Impressions Chest X-Ray 01/26/18 13:18 CONCLUSION: 1. No evidence for infiltrate. 2. Nodular density right lower lobe. Nonemergent outpatient chest recommended. Knee X-Ray 01/26/18 13:51 CONCLUSION: Oblique fractures involving both the tibia and the fibula. Tibia/Fibula X-Ray 01/27/18 00:00 CONCLUSION: Improved anatomic alignment following left tibia ORIF, as above. Assessment and Plan - Plan Ms. Cervantes is a pleasant 67-year-old female with a history of hypertension, hyperlipidemia, anxiety/depression who presented to the emergency department on the advice of her orthopedic surgeon due to left leg pain. Workup indicated left tibia and fibula fracture. Oblique fracture of left tibia and fibula Acetaminophen, Percocet, morphine for pain management Bowel regimen Orthopedic surgery consult. Patient is status post left tibia fracture fixation with intramedullary nail. Physical therapy evaluation pending. Will likely need SNF. Severe hypokalemia Probable acute kidney injury Hyponatremia Hypokalemia resolved. Potassium today 3.6. -Creatinine improved from 1.47 --> 1.05. Sodium improved 128 --> 137. Hypertension Hyperlipidemia GERD Anxiety/depression Continue home medications amlodipine, Seroquel, venlafaxine, PPI, statin Full code. Lovenox.
[2018-01-27] MEDS: Clindamycin 900 mg/NS Premix 900 MG/50 ML PIGGYBACK IV.SIG SCH (14:30)
[2018-01-27] MEDS: oxyCODONE/Acetaminophen 10/325 Tablet PO PRN (18:25)
--- NOTE | 2018-01-27 18:53 | ECG ---
Date Performed: 01/26/2018 Time Performed: 18:06:57 PTAGE: 67 years EKG: Sinus rhythm INCOMPLETE RIGHT BUNDLE BRANCH BLOCK BORDERLINE ECG NO PREVIOUS TRACING DOCTOR: Reggie Canada Interpretating Date/Time 01/27/2018 18:51:23
[2018-01-27] MEDS: Multivitamin/Minerals Therapeutic Tablet PO SCH (21:44)
[2018-01-27] MEDS: Senna/Docusate Sodium 8.6/50 MG Tablet PO SCH (21:44)
[2018-01-27] MEDS: Mirtazapine 15 MG Tablet PO SCH (21:45)
[2018-01-27] MEDS: lamoTRIgine 100 MG Tablet PO SCH (21:46)
[2018-01-28] MEDS: oxyCODONE/Acetaminophen 10/325 Tablet PO PRN ×5 (02:36→20:11)
[2018-01-28] MEDS: Enoxaparin Inj 40 MG/0.4 ML Syringe SQ SCH (08:36)
[2018-01-28] MEDS: Senna/Docusate Sodium 8.6/50 MG Tablet PO SCH ×2 (08:36→20:09)
[2018-01-28] MEDS: Venlafaxine XR 75 MG Capsule PO SCH (08:37)
--- NOTE | 2018-01-28 08:37 | P.PNOP ---
Subjective Interval history: Patient states her pain is well controlled. All questions answered Physical Exam Vital signs: Vital Signs 01/27/18 10:04 01/27/18 10:15 01/27/18 10:30 Temperature 98.7 F Pulse Rate 89 89 85 Respiratory Rate 14 14 17 Blood Pressure 108/66 102/58 L 105/55 L Pulse Oximetry 93 L 90 L 93 L 01/27/18 10:45 01/27/18 11:00 01/27/18 11:45 Temperature 98.8 F Pulse Rate 79 79 79 Respiratory Rate 16 16 16 Blood Pressure 102/55 L 106/59 L 102/55 L Pulse Oximetry 92 L 94 L 93 L 01/27/18 12:00 01/27/18 13:07 01/27/18 16:00 Temperature 97.8 F 98.6 F Pulse Rate 89 93 H Respiratory Rate 14 16 Blood Pressure 112/59 L 135/74 Pulse Oximetry 92 L 93 L 94 L 01/27/18 16:56 01/27/18 20:00 01/28/18 00:00 Temperature 98 F 97.4 F L Pulse Rate 79 89 79 Respiratory Rate 16 18 18 Blood Pressure 122/75 113/62 Pulse Oximetry 95 95 01/28/18 04:00 Temperature 97.3 F L Pulse Rate 76 Respiratory Rate 20 Blood Pressure 126/71 Pulse Oximetry 99 Intake & Output 01/27/18 01/28/18 01/28/18 18:59 06:59 18:59 Intake Total 1730 / 1730 1770 / 1770 Output Total 100 / 100 Balance 1630 / 1630 1770 / 1770 Weight 95.4 kg Intake: IV 50 / 50 1050 / 1050 NS Inj 1,000 ML @ 100 mls/hr IV 1000 / 1000 .CONT .Q10H JOSUE Rx#:[id number] Cleocin 900 mg/NS Premix 900 mg 50 / 50 50 / 50 In 50 ml @ 100 mls/hr IV.SIG Q8H JOSUE Rx#:[id number] Oral 680 / 680 720 / 720 Anesthesia Amount 1000 / 1000 Output: Estimated Blood Loss 100 / 100 Other: # Voids 1 2 Date of Last Bowel Movement 01/26/18 Narrative: LUE: Splint dry and intact, no swelling appreciated distally, freely able to move distal digits, NVI LLE: CKS is in place, ice machine in place, mild amount of swelling noted distally, ecchymosis noted distally, freely able to move distal digits and ankle , NVI. Results - Labs CBC & Chem 7: 01/26/18 14:30 01/27/18 04:47 - Imaging Impressions Tibia/Fibula X-Ray 01/27/18 00:00 CONCLUSION: Improved anatomic alignment following left tibia ORIF, as above. Assessment and Plan - Assessment and Plan POD #1 Left Tibial Nail, Dr De Luna Ortho status stable. 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 DVT prophylaxis Lovenox for 3 weeks followed by aspirin 81mg BID for 1 month. Dressing changes as ordered Clear for discharge from an orthopedic standpoint, would most likely recommend rehab Follow-up with Dr. De Luna or [facility] in 2 weeks
[2018-01-28] MEDS: Loratadine 10 MG Tablet PO SCH (08:38)
[2018-01-28] MEDS: lamoTRIgine 100 MG Tablet PO SCH ×2 (08:38→20:09)
[2018-01-28] MEDS: Calcium/Vitamin D 250/125 MG Tablet PO SCH (08:38)
[2018-01-28] MEDS: amLODIPine 10 MG Tablet PO SCH (08:38)
[2018-01-28] MEDS: Pantoprazole Sodium 20 MG DR Tablet PO SCH (08:39)
[2018-01-28] MEDS: clonazePAM 0.5 MG Tablet PO SCH ×2 (08:39→20:08)
[2018-01-28] MEDS: QUEtiapine 25 MG Tablet PO SCH ×2 (08:39→20:08)
[2018-01-28] MEDS: Multivitamin/Minerals Therapeutic Tablet PO SCH ×2 (08:40→20:09)
[2018-01-28] MEDS: Clindamycin 900 mg/NS Premix 900 MG/50 ML PIGGYBACK IV.SIG SCH ×2 (10:21)
--- NOTE | 2018-01-28 14:54 | P.PNIM ---
Subjective Interval history: History of Present Illness: Ms Cervantes is a pleasant 67-year-old female with PMH of HTN, GERD, HLD, anxiety, depression who presented to the emergency department on 01/26/2018 on the advice of our orthopedic surgeon. She recently underwent a bone graft from her left leg to her left arm. She complains of significant pain in her left leg. She went to see her orthopedic surgeon who directed patient to the ED. Left knee x- ray shows oblique fractures. Patient denies any chest pain, shortness of breath , cough, fever, chills. Denies any abdominal pain, dysuria, hematuria. No changes in bowel or bladder habits. PMH: Hypertension, hyperlipidemia, anxiety/depression PSH: Back surgery, bunionectomy Social history: Does not smoke, uses alcohol socially Family history: No family history of Alzheimer's or Parkinson's. 10-2 Follow up for left comminuted proximal tibial shaft fracture. Patient is status post surgical intervention. Patient is currently doing well. No fever or chills. 10-3 SEEN BY ORTHO WANTS TO GO TO [facility] FOR REHAB AWAIT [facility] CLEARANCE AND ACCEPTANCE AM LABS NWB ON LEFT LE FRACTURE LEFT UE DW FAMILY WILL NEED SNF/REHAB DC TO SNF ONCE CLEARED AND ACCEPTED PER [facility] Physical Exam Vital signs: Vital Signs 01/27/18 16:00 01/27/18 16:56 01/27/18 20:00 Temperature 98.6 F 98 F Pulse Rate 93 H 79 89 Respiratory Rate 16 16 18 Blood Pressure 135/74 122/75 Pulse Oximetry 94 L 95 01/28/18 00:00 01/28/18 04:00 01/28/18 08:00 Temperature 97.4 F L 97.3 F L 97.6 F Pulse Rate 79 76 80 Respiratory Rate 18 20 18 Blood Pressure 113/62 126/71 134/77 Pulse Oximetry 95 99 96 01/28/18 11:05 01/28/18 12:00 Temperature 97.5 F L Pulse Rate 78 Respiratory Rate 18 Blood Pressure 105/60 Pulse Oximetry 96 96 Intake & Output 01/27/18 01/28/18 01/28/18 18:59 06:59 18:59 Intake Total 1730 / 1730 1770 / 1770 50 / 50 Output Total 100 / 100 Balance 1630 / 1630 1770 / 1770 50 / 50 Weight 95.4 kg Intake: IV 50 / 50 1050 / 1050 50 / 50 NS Inj 1,000 ML @ 100 mls/hr IV 1000 / 1000 .CONT .Q10H JOSUE Rx#:[id number] Cleocin 900 mg/NS Premix 900 mg 50 / 50 50 / 50 50 / 50 In 50 ml @ 100 mls/hr IV.SIG Q8H JOSUE Rx#:[id number] Oral 680 / 680 720 / 720 Anesthesia Amount 1000 / 1000 Output: Estimated Blood Loss 100 / 100 Other: # Voids 1 2 Date of Last Bowel Movement 01/26/18 01/26/18 Narrative: GENERAL: Alert, oriented x3, NAD. SKIN: Warm and dry. HEAD: Normocephalic. Atraumatic EYES: No scleral icterus. No injection or drainage. NECK: Supple, trachea midline. No JVD or lymphadenopathy. CARDIOVASCULAR: Regular rate and rhythm without murmurs, gallops, or rubs. RESPIRATORY: Breath sounds equal bilaterally. No accessory muscle use. GASTROINTESTINAL: Abdomen soft, non-tender, nondistended. MUSCULOSKELETAL: No cyanosis, or edema. Status post left lower extremity surgery. Left upper extremity dressed also-left lower extremity is dressed BACK: Nontender without obvious deformity. No CVA tenderness. Insight and judgment is good Mood and behaviors appropriate Results - Labs CBC & Chem 7: 01/26/18 14:30 01/27/18 04:47 - Imaging Chest X-Ray 01/26/18 13:18 CONCLUSION: 1. No evidence for infiltrate. 2. Nodular density right lower lobe. Nonemergent outpatient chest recommended. Knee X-Ray 01/26/18 13:51 CONCLUSION: Oblique fractures involving both the tibia and the fibula. Tibia/Fibula X-Ray 01/27/18 00:00 CONCLUSION: Improved anatomic alignment following left tibia ORIF, as above. - Procedures cc: Zeb De Luna MD Preoperative Diagnosis: Left comminuted proximal tibial shaft fracture Postoperative Diagnosis: Same Date of procedure: 01/27/18 Procedure: Left tibia fracture fixation with intramedullary nail Anesthesia: GETA Surgeon: Zeb De Luna MD Closet Organizer: EDGARDO Ratliff The surgical procedure was assisted by my Advanced Registered Nurse Practitioner. My SECOND FACING BASTER presence was necessary throughout this case for the manipulation and positioning of the surgical extremity. My SECOND FACING BASTER was assisting me throughout the duration of this procedure. The skill set of an Advance Registered Nurse Practitioner was medically necessary to complete this procedure. During the surgical case, the surgical physician assistant was working at the back table and the Advance Registered Nurse Practitioner was directly assisting me. Operation and Findings: Implants: Synthes tibal nail, size: 345 x 12 Estimated blood loss: 300 cc The patient received intravenous clindamycin and vancomycin. After the appropriate anesthesia was administered, the patient was prepped and draped in the supine position in the usual sterile fashion. Skin assessment showed mild to moderate diffuse swelling. Previous medial incision was having a little bit of serosanguineous drainage with no erythema or purulence. We made incision proximal to the patella. We carefully dissected down to the quadriceps tendon. An in-line longitudinal split to the quadriceps tendon was completed. The capsule of the knee was entered. We placed the smooth trocar within the knee joint down to the proximal tibia, protecting the patella and trochlea during the case. We then reduced the tibia fracture manually and under fluoroscopic imaging. We were able to achieve essentially anatomic alignment with the closed reduction. We held this reduced in anatomic alignment during reaming. A ball-tipped guidewire was placed into the tibial shaft, passing the fracture site. This was placed down to the distal physeal line of the tibia. We then sequentially reamed the tibia to 1 mm larger than the implanted tibial nail. We obtained good cortical chatter. We measured the appropriate length for the tibial nail. We then passed the tibial nail into the medullary canal of the tibia. While we were doing this we found that the fracture significantly displaced due to forces from the nail. We remove the nail and placed a blocking wire. We put the nail back into position and found better alignment but still fairly significant displacement. We remove the nail again and placed a second blocking wire. This time we had overall much better alignment. There was only mild displacement on the lateral view with no angulation in the AP view was anatomic with no angulation. We did make a separate incision to place a ball spike pusher on the anterior aspect of the proximal tibia near the tibial tubercle but this did not further reduce the fracture at all. The nail was placed essentially flush to the proximal bone so that we could use as many of the proximal screws as possible. The nail was secured proximally with 4 screws, using the associated jig as a guide.We removed the jig and placed in an Which helped create the most proximal screw into a locking screw. We used the perfect [place] technique distally to visualize the distal tibial screw holes. We placed 1 screw distally. We thoroughly irrigated the incisions including a lavage of the arthrotomy site proximally. The quadriceps split was closed with a #1 Vicryl. The remaining incisions were closed with #2-0 Vicryl, followed by clara. We placed a knee immobilizer on the leg. 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 Chemical DVT prophylaxis will be performed with Lovenox for 3 weeks followed by aspirin for 1 month. Documented By: Zeb De Luna MD 01/27/18 0959 Assessment and Plan - Plan Ms. Cervantes is a pleasant 67-year-old female with a history of hypertension, hyperlipidemia, anxiety/depression who presented to the emergency department on the advice of her orthopedic surgeon due to left leg pain. Workup indicated left tibia and fibula fracture. Oblique fracture of left tibia and fibula Acetaminophen, Percocet, morphine for pain management Bowel regimen Orthopedic surgery consult. Patient is status post left tibia fracture fixation with intramedullary nail. Physical therapy evaluation pending. Will need SNF. Severe hypokalemia Probable acute kidney injury Hyponatremia Hypokalemia resolved. Potassium today 3.6. -Creatinine improved from 1.47 --> 1.05. Sodium improved 128 --> 137. Hypertension Hyperlipidemia GERD Anxiety/depression Continue home medications amlodipine, Seroquel, venlafaxine, PPI, statin Full code. Lovenox. AM LABS Code Status: FULL CODE Discussed Condition With: KELSY RN AND PT AND CM AND FAMILY Discharge Planning: [facility]
[2018-01-28] MEDS: Mirtazapine 15 MG Tablet PO SCH (20:09)
[2018-01-29] MEDS: oxyCODONE/Acetaminophen 10/325 Tablet PO PRN ×3 (05:13→18:56)
[2018-01-29] MEDS: QUEtiapine 25 MG Tablet PO SCH ×2 (08:05→20:44)
[2018-01-29] MEDS: Calcium/Vitamin D 250/125 MG Tablet PO SCH (08:05)
[2018-01-29] MEDS: Multivitamin/Minerals Therapeutic Tablet PO SCH ×2 (08:05→20:44)
[2018-01-29] MEDS: Pantoprazole Sodium 20 MG DR Tablet PO SCH (08:05)
[2018-01-29] MEDS: amLODIPine 10 MG Tablet PO SCH (08:05)
[2018-01-29 08:06] LABS: Baso # (Auto) 0.1 th/mm3 (0.0-0.2); Baso % (Auto) 0.7 % (0.0-2.0); Eos # (Auto) 0.5 th/mm3 (0.0-0.4); Eos % (Auto) 6.3 % (0.0-4.0); Hematocrit 28.8 % (35.0-46.0); Hemoglobin 9.9 gm/dL (11.6-15.3); Lymph % (Auto) 12.8 % (9.0-44.0); Mean Corpuscular HGB Conc 34.4 % (32.0-36.0); Mean Corpuscular Hemoglobin 31.8 pg (27.0-34.0); Mean Corpuscular Volume 92.5 fL (80.0-100.0); Mono # (Auto) 0.7 th/mm3 (0.0-0.9); Mono % (Auto) 8.7 % (0.0-8.0); Neut # (Auto) 5.5 th/mm3 (1.8-7.7); Neut % (Auto) 71.5 % (16.0-70.0); Platelet Count 382 th/mm3 (150-450); Red Blood Count 3.12 mil/mm3 (4.00-5.30); White Blood Count 7.7 th/mm3 (4.0-11.0)
[2018-01-29] MEDS: clonazePAM 0.5 MG Tablet PO SCH ×2 (08:06→20:44)
[2018-01-29] MEDS: Senna/Docusate Sodium 8.6/50 MG Tablet PO SCH ×2 (08:06→20:44)
[2018-01-29] MEDS: lamoTRIgine 100 MG Tablet PO SCH ×2 (08:06→20:44)
[2018-01-29] MEDS: Enoxaparin Inj 40 MG/0.4 ML Syringe SQ SCH (08:06)
[2018-01-29] MEDS: Venlafaxine XR 75 MG Capsule PO SCH (08:06)
[2018-01-29] MEDS: Loratadine 10 MG Tablet PO SCH (08:06)
--- NOTE | 2018-01-29 08:20 | P.PNOP ---
Subjective Interval history: Pt states her pain is well controlled today. She states she was using the restroom last night and heard a loud pop in her knee. Her pain is well controlled at the moment and it has not bothered her since the incident. Pt was reassured and educated. Physical Exam Vital signs: Vital Signs 01/28/18 11:05 01/28/18 12:00 01/28/18 14:42 Temperature 97.5 F L 98 F Pulse Rate 78 76 Respiratory Rate 18 20 Blood Pressure 105/60 149/70 H Pulse Oximetry 96 96 93 L 01/28/18 20:00 01/28/18 23:16 01/29/18 03:02 Temperature 97.6 F 98.3 F 97.8 F Pulse Rate 77 76 77 Respiratory Rate 18 18 18 Blood Pressure 137/71 123/64 144/72 H Pulse Oximetry 95 92 L 94 L Intake & Output 01/28/18 01/29/18 01/29/18 19:59 06:59 18:59 Intake Total Balance Weight Intake: IV Cleocin 900 mg/NS Premix 900 mg In 50 ml @ 100 mls/hr IV.SIG Q8H [facility] Rx#:[id number] Oral Other: # Voids Date of Last Bowel Movement # Bowel Movements Narrative: LUE: Splint dry and intact, no swelling appreciated distally, freely able to move distal digits, NVI LLE: CKS is in place, ice machine in place, mild amount of swelling noted distally, ecchymosis noted distally, freely able to move distal digits and ankle , NVI. Results - Labs CBC & Chem 7: 01/29/18 06:50 01/27/18 04:47 Laboratory Results - last 24 hr 01/29/18 06:50 WBC 7.7 RBC 3.12 L Hgb 9.9 L Hct 28.8 L MCV 92.5 MCH 31.8 MCHC 34.4 RDW 14.0 Plt Count 382 MPV 8.0 Neut % (Auto) 71.5 H Lymph % (Auto) 12.8 [place] % (Auto) 8.7 H Eos % (Auto) 6.3 H Baso % (Auto) 0.7 Neut # (Auto) 5.5 Lymph # (Auto) 1.0 [place] # (Auto) 0.7 Eos # (Auto) 0.5 H Baso # (Auto) 0.1 WBC Differential . Differential Comment Auto diff final - Procedures cc: Zeb De Luna MD Preoperative Diagnosis: Left comminuted proximal tibial shaft fracture Postoperative Diagnosis: Same Date of procedure: 01/27/18 Procedure: Left tibia fracture fixation with intramedullary nail Anesthesia: GETA Surgeon: Zeb De Luna MD Cdl Dedicated Truck Driver: EDGARDO Ratliff The surgical procedure was assisted by my Advanced Registered Nurse Practitioner. My METAL SANDER presence was necessary throughout this case for the manipulation and positioning of the surgical extremity. My METAL SANDER was assisting me throughout the duration of this procedure. The skill set of an Advance Registered Nurse Practitioner was medically necessary to complete this procedure. During the surgical case, the cardiovascular surgical tech was working at the back table and the Advance Registered Nurse Practitioner was directly assisting me. Operation and Findings: Implants: Synthes tibal nail, size: 345 x 12 Estimated blood loss: 300 cc The patient received intravenous clindamycin and vancomycin. After the appropriate anesthesia was administered, the patient was prepped and draped in the supine position in the usual sterile fashion. Skin assessment showed mild to moderate diffuse swelling. Previous medial incision was having a little bit of serosanguineous drainage with no erythema or purulence. We made incision proximal to the patella. We carefully dissected down to the quadriceps tendon. An in-line longitudinal split to the quadriceps tendon was completed. The capsule of the knee was entered. We placed the smooth trocar within the knee joint down to the proximal tibia, protecting the patella and trochlea during the case. We then reduced the tibia fracture manually and under fluoroscopic imaging. We were able to achieve essentially anatomic alignment with the closed reduction. We held this reduced in anatomic alignment during reaming. A ball-tipped guidewire was placed into the tibial shaft, passing the fracture site. This was placed down to the distal physeal line of the tibia. We then sequentially reamed the tibia to 1 mm larger than the implanted tibial nail. We obtained good cortical chatter. We measured the appropriate length for the tibial nail. We then passed the tibial nail into the medullary canal of the tibia. While we were doing this we found that the fracture significantly displaced due to forces from the nail. We remove the nail and placed a blocking wire. We put the nail back into position and found better alignment but still fairly significant displacement. We remove the nail again and placed a second blocking wire. This time we had overall much better alignment. There was only mild displacement on the lateral view with no angulation in the AP view was anatomic with no angulation. We did make a separate incision to place a ball spike pusher on the anterior aspect of the proximal tibia near the tibial tubercle but this did not further reduce the fracture at all. The nail was placed essentially flush to the proximal bone so that we could use as many of the proximal screws as possible. The nail was secured proximally with 4 screws, using the associated jig as a guide.We removed the jig and placed in an Which helped create the most proximal screw into a locking screw. We used the perfect [place] technique distally to visualize the distal tibial screw holes. We placed 1 screw distally. We thoroughly irrigated the incisions including a lavage of the arthrotomy site proximally. The quadriceps split was closed with a #1 Vicryl. The remaining incisions were closed with #2-0 Vicryl, followed by clara. We placed a knee immobilizer on the leg. 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 Chemical DVT prophylaxis will be performed with Lovenox for 3 weeks followed by aspirin for 1 month. Documented By: Zeb De Luna MD 01/27/18 0959 Assessment and Plan - Assessment and Plan POD #2 Left Tibial Nail, Dr De Luna Ortho status stable. 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 DVT prophylaxis Lovenox for 3 weeks followed by aspirin 81mg BID for 1 month. Start daily dressing changes today - Alverto Jerez NP confirms CKS at all times. If ice machine used -make sure there is a protective layer/towel to protect skin once cyndi wrap removed. Clear for discharge from an orthopedic standpoint to rehab Follow-up with Dr. De Luna or [facility] in 2 weeks
[2018-01-29 08:38] LABS: Alanine Aminotransferase 34 U/L (10-53); Alkaline Phosphatase 83 U/L (45-117); Anion Gap 8 meq/L (5-15); Aspartate Aminotransferase 32 U/L (15-37); Blood Urea Nitrogen 15 mg/dL (7-18); Calcium 8.6 mg/dL (8.5-10.1); Carbon Dioxide 28.1 meq/L (21.0-32.0); Chloride 103 meq/L (98-107); Free T4 (Free Thyroxine) 1.29 ng/dL (0.76-1.46); Glomerular Filtration Rate 61 mL/min (>89); Glucose,Random 102 mg/dL (74-106); Magnesium 2.2 mg/dL (1.5-2.5); Phosphorus 3.2 mg/dL (2.5-4.9); Potassium 3.5 meq/L (3.5-5.1); Sodium 139 meq/L (136-145); Total Protein 6.9 g/dL (6.4-8.2)
--- NOTE | 2018-01-29 14:58 | P.PNIM ---
Subjective Interval history: Ms Cervantes is a pleasant 67-year-old female with PMH of HTN, GERD, HLD, anxiety, depression who presented to the emergency department on 01/26/2018 on the advice of our orthopedic surgeon. She recently underwent a bone graft from her left leg to her left arm. She complains of significant pain in her left leg. She went to see her orthopedic surgeon who directed patient to the ED. Left knee x- ray shows oblique fractures. Patient denies any chest pain, shortness of breath , cough, fever, chills. Denies any abdominal pain, dysuria, hematuria. No changes in bowel or bladder habits. PMH: Hypertension, hyperlipidemia, anxiety/depression PSH: Back surgery, bunionectomy Social history: Does not smoke, uses alcohol socially Family history: No family history of Alzheimer's or Parkinson's. 11-2 Follow up for left comminuted proximal tibial shaft fracture. Patient is status post surgical intervention. Patient is currently doing well. No fever or chills. 11-3 SEEN BY ORTHO WANTS TO GO TO [facility] FOR REHAB AWAIT [employer] CLEARANCE AND ACCEPTANCE AM LABS NWB ON LEFT LE FRACTURE LEFT UE DW FAMILY WILL NEED SNF/REHAB DC TO SNF ONCE CLEARED AND ACCEPTED PER [employer] 11-4 has been cleared by orthopedic surgery for discharge to SNF has nonweightbearing status to left upper extremity and left lower extremity Continue pain control Await [employer] clearance and acceptance for [facility] SN[facility] Continue a.m. labs We will need SNF at discharge Physical Exam Vital signs: Vital Signs 01/28/18 20:00 01/28/18 23:16 01/29/18 03:02 Temperature 97.6 F 98.3 F 97.8 F Pulse Rate 77 76 77 Respiratory Rate 18 18 18 Blood Pressure 137/71 123/64 144/72 H Pulse Oximetry 95 92 L 94 L 01/29/18 08:00 01/29/18 12:00 Temperature 98.3 F 97.8 F Pulse Rate 72 92 H Respiratory Rate 18 18 Blood Pressure 136/76 113/57 L Pulse Oximetry 94 L 97 Intake & Output 01/28/18 01/29/18 01/29/18 19:59 06:59 18:59 Intake Total Balance Weight Intake: IV Cleocin 900 mg/NS Premix 900 mg In 50 ml @ 100 mls/hr IV.SIG Q8H [facility] Rx#:[id number] Oral Other: # Voids Date of Last Bowel Movement 01/26/18 # Bowel Movements Narrative: GENERAL: Alert, oriented x3, NAD. SKIN: Warm and dry. HEAD: Normocephalic. Atraumatic EYES: No scleral icterus. No injection or drainage. NECK: Supple, trachea midline. No JVD or lymphadenopathy. CARDIOVASCULAR: Regular rate and rhythm without murmurs, gallops, or rubs. RESPIRATORY: Breath sounds equal bilaterally. No accessory muscle use. GASTROINTESTINAL: Abdomen soft, non-tender, nondistended. MUSCULOSKELETAL: No cyanosis, or edema. Status post left lower extremity surgery. Left upper extremity dressed also-left lower extremity is dressed BACK: Nontender without obvious deformity. No CVA tenderness. Insight and judgment is good Mood and behaviors appropriate Results - Labs CBC & Chem 7: 01/29/18 06:50 01/29/18 06:20 Laboratory Results - last 24 hr 01/29/18 01/29/18 01/29/18 06:20 06:50 06:50 WBC 7.7 RBC 3.12 L Hgb 9.9 L Hct 28.8 L MCV 92.5 MCH 31.8 MCHC 34.4 RDW 14.0 Plt Count 382 MPV 8.0 Neut % (Auto) 71.5 H Lymph % (Auto) 12.8 [place] % (Auto) 8.7 H Eos % (Auto) 6.3 H Baso % (Auto) 0.7 Neut # (Auto) 5.5 Lymph # (Auto) 1.0 [place] # (Auto) 0.7 Eos # (Auto) 0.5 H Baso # (Auto) 0.1 WBC Differential . Differential Comment Auto diff final Sodium 139 Potassium 3.5 Chloride 103 Carbon Dioxide 28.1 Anion Gap 8 BUN 15 Creatinine 0.92 Estimated GFR 61 L Random Glucose 102 Hemoglobin A1c 5.0 Calcium 8.6 Phosphorus 3.2 Magnesium 2.2 Total Bilirubin 0.4 AST 32 ALT 34 Alkaline Phosphatase 83 Total Protein 6.9 D Albumin 3.0 L TSH 5.630 H Free T4 1.29 - Imaging ITS Impressions Chest X-Ray 01/26/18 13:18 CONCLUSION: 1. No evidence for infiltrate. 2. Nodular density right lower lobe. Nonemergent outpatient chest recommended. Knee X-Ray 01/26/18 13:51 CONCLUSION: Oblique fractures involving both the tibia and the fibula. Tibia/Fibula X-Ray 01/27/18 00:00 CONCLUSION: Improved anatomic alignment following left tibia ORIF, as above. - Procedures cc: Zeb De Luna MD Preoperative Diagnosis: Left comminuted proximal tibial shaft fracture Postoperative Diagnosis: Same Date of procedure: 01/27/18 Procedure: Left tibia fracture fixation with intramedullary nail Anesthesia: GETA Surgeon: Zeb De Luna MD Plasma Cutting Machine Operator: EDGARDO Ratliff The surgical procedure was assisted by my Advanced Registered Nurse Practitioner. My RN DISEASE MANAGEMENT presence was necessary throughout this case for the manipulation and positioning of the surgical extremity. My RN DISEASE MANAGEMENT was assisting me throughout the duration of this procedure. The skill set of an Advance Registered Nurse Practitioner was medically necessary to complete this procedure. During the surgical case, the certified surgical first assistant was working at the back table and the Advance Registered Nurse Practitioner was directly assisting me. Operation and Findings: Implants: Synthes tibal nail, size: 345 x 12 Estimated blood loss: 300 cc The patient received intravenous clindamycin and vancomycin. After the appropriate anesthesia was administered, the patient was prepped and draped in the supine position in the usual sterile fashion. Skin assessment showed mild to moderate diffuse swelling. Previous medial incision was having a little bit of serosanguineous drainage with no erythema or purulence. We made incision proximal to the patella. We carefully dissected down to the quadriceps tendon. An in-line longitudinal split to the quadriceps tendon was completed. The capsule of the knee was entered. We placed the smooth trocar within the knee joint down to the proximal tibia, protecting the patella and trochlea during the case. We then reduced the tibia fracture manually and under fluoroscopic imaging. We were able to achieve essentially anatomic alignment with the closed reduction. We held this reduced in anatomic alignment during reaming. A ball-tipped guidewire was placed into the tibial shaft, passing the fracture site. This was placed down to the distal physeal line of the tibia. We then sequentially reamed the tibia to 1 mm larger than the implanted tibial nail. We obtained good cortical chatter. We measured the appropriate length for the tibial nail. We then passed the tibial nail into the medullary canal of the tibia. While we were doing this we found that the fracture significantly displaced due to forces from the nail. We remove the nail and placed a blocking wire. We put the nail back into position and found better alignment but still fairly significant displacement. We remove the nail again and placed a second blocking wire. This time we had overall much better alignment. There was only mild displacement on the lateral view with no angulation in the AP view was anatomic with no angulation. We did make a separate incision to place a ball spike pusher on the anterior aspect of the proximal tibia near the tibial tubercle but this did not further reduce the fracture at all. The nail was placed essentially flush to the proximal bone so that we could use as many of the proximal screws as possible. The nail was secured proximally with 4 screws, using the associated jig as a guide.We removed the jig and placed in an Which helped create the most proximal screw into a locking screw. We used the perfect [place] technique distally to visualize the distal tibial screw holes. We placed 1 screw distally. We thoroughly irrigated the incisions including a lavage of the arthrotomy site proximally. The quadriceps split was closed with a #1 Vicryl. The remaining incisions were closed with #2-0 Vicryl, followed by clara. We placed a knee immobilizer on the leg. 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 Chemical DVT prophylaxis will be performed with Lovenox for 3 weeks followed by aspirin for 1 month. Documented By: Zeb De Luna MD 01/27/18 0959 Assessment and Plan - Plan Ms. Cervantes is a pleasant 67-year-old female with a history of hypertension, hyperlipidemia, anxiety/depression who presented to the emergency department on the advice of her orthopedic surgeon due to left leg pain. Workup indicated left tibia and fibula fracture. Oblique fracture of left tibia and fibula Acetaminophen, Percocet, morphine for pain management Bowel regimen Orthopedic surgery consult. Patient is status post left tibia fracture fixation with intramedullary nail. Physical therapy evaluation pending. Will need SNF. -Has nonweightbearing status to the left lower extremity History of fracture of left upper extremity status post repair of the ulnar area -has nonweightbearing status to the left upper extremity Severe hypokalemia Probable acute kidney injury Hyponatremia Hypokalemia resolved. Potassium today 3.6. -Creatinine improved from 1.47 --> 1.05. Sodium improved 128 --> 137. Hypertension Hyperlipidemia GERD Anxiety/depression Continue home medications amlodipine, Seroquel, venlafaxine, PPI, statin Hypothyroidism we will start Synthroid 50 MCG's p.o. daily Full code. Lovenox. AM LABS Code Status: Full code Discussed Condition With: RN and patient Discharge Planning: ONCE CLEARED BY [facility] FOR SNF
[2018-01-29] MEDS: Mirtazapine 15 MG Tablet PO SCH (20:44)
[2018-01-30] MEDS: oxyCODONE/Acetaminophen 10/325 Tablet PO PRN ×2 (05:32→11:29)
[2018-01-30 05:45] LABS: Baso # (Auto) 0.1 th/mm3 (0.0-0.2); Baso % (Auto) 0.8 % (0.0-2.0); Eos # (Auto) 0.6 th/mm3 (0.0-0.4); Eos % (Auto) 8.4 % (0.0-4.0); Hematocrit 29.3 % (35.0-46.0); Lymph # (Auto) 1.7 th/mm3 (1.0-4.8); Lymph % (Auto) 25.4 % (9.0-44.0); Mean Corpuscular Hemoglobin 31.3 pg (27.0-34.0); Mean Corpuscular Volume 92.3 fL (80.0-100.0); Mono # (Auto) 0.6 th/mm3 (0.0-0.9); Mono % (Auto) 9.1 % (0.0-8.0); Neut # (Auto) 3.8 th/mm3 (1.8-7.7); Neut % (Auto) 56.3 % (16.0-70.0); Platelet Count 383 th/mm3 (150-450); Red Blood Count 3.18 mil/mm3 (4.00-5.30); Red Cell Distribution Width 13.4 % (11.6-17.2); White Blood Count 6.7 th/mm3 (4.0-11.0)
[2018-01-30] MEDS ORDERED: Levothyroxine 50 MCG Tablet PO SCH (06:00)
[2018-01-30 06:16] LABS: Albumin 2.7 g/dL (3.4-5.0); Anion Gap 8 meq/L (5-15); Aspartate Aminotransferase 30 U/L (15-37); Blood Urea Nitrogen 16 mg/dL (7-18); Calcium 8.7 mg/dL (8.5-10.1); Carbon Dioxide 27.9 meq/L (21.0-32.0); Chloride 101 meq/L (98-107); Glomerular Filtration Rate 68 mL/min (>89); Glucose,Random 80 mg/dL (74-106); Magnesium 2.3 mg/dL (1.5-2.5); Potassium 3.8 meq/L (3.5-5.1); Sodium 137 meq/L (136-145)
[2018-01-30 06:24] LABS: Alanine Aminotransferase 34 U/L (10-53); Alkaline Phosphatase 85 U/L (45-117); Phosphorus 4.4 mg/dL (2.5-4.9); Total Protein 6.6 g/dL (6.4-8.2)
[2018-01-30] MEDS: Multivitamin/Minerals Therapeutic Tablet PO SCH ×2 (07:38→08:22)
[2018-01-30] MEDS: clonazePAM 0.5 MG Tablet PO SCH ×2 (07:38→11:25)
[2018-01-30] MEDS: Calcium/Vitamin D 250/125 MG Tablet PO SCH ×2 (07:38→08:22)
[2018-01-30] MEDS: QUEtiapine 25 MG Tablet PO SCH ×2 (07:38→08:22)
[2018-01-30] MEDS: Venlafaxine XR 75 MG Capsule PO SCH ×2 (07:38→08:21)
[2018-01-30] MEDS: Senna/Docusate Sodium 8.6/50 MG Tablet PO SCH ×2 (07:39→08:22)
[2018-01-30] MEDS: Enoxaparin Inj 40 MG/0.4 ML Syringe SQ SCH ×2 (07:39→08:21)
[2018-01-30] MEDS: Pantoprazole Sodium 20 MG DR Tablet PO SCH ×2 (07:39→08:22)
[2018-01-30] MEDS: Loratadine 10 MG Tablet PO SCH ×2 (07:39→08:21)
[2018-01-30] MEDS: lamoTRIgine 100 MG Tablet PO SCH ×2 (07:39→08:21)
[2018-01-30] MEDS: amLODIPine 10 MG Tablet PO SCH ×2 (07:39→08:22)
--- NOTE | 2018-01-30 12:09 | P.PNIM ---
Subjective Interval history: Ms Cervantes is a pleasant 67-year-old female with PMH of HTN, GERD, HLD, anxiety, depression who presented to the emergency department on 01/26/2018 on the advice of our orthopedic surgeon. She recently underwent a bone graft from her left leg to her left arm. She complains of significant pain in her left leg. She went to see her orthopedic surgeon who directed patient to the ED. Left knee x- ray shows oblique fractures. Patient denies any chest pain, shortness of breath , cough, fever, chills. Denies any abdominal pain, dysuria, hematuria. No changes in bowel or bladder habits. PMH: Hypertension, hyperlipidemia, anxiety/depression PSH: Back surgery, bunionectomy Social history: Does not smoke, uses alcohol socially Family history: No family history of Alzheimer's or Parkinson's. 11-2 Follow up for left comminuted proximal tibial shaft fracture. Patient is status post surgical intervention. Patient is currently doing well. No fever or chills. 11-3 SEEN BY ORTHO WANTS TO GO TO [facility] FOR REHAB AWAIT [employer] CLEARANCE AND ACCEPTANCE AM LABS NWB ON LEFT LE FRACTURE LEFT UE DW FAMILY WILL NEED SNF/REHAB DC TO SNF ONCE CLEARED AND ACCEPTED PER [employer] 11-4 has been cleared by orthopedic surgery for discharge to SNF has nonweightbearing status to left upper extremity and left lower extremity Continue pain control Await [employer] clearance and acceptance for [facility] SNF Continue a.m. labs We will need SNF at discharge 11-5 DC TO SNF WHEN [employer] APPROVES IT DW RN AND PT AND CM Physical Exam Vital signs: Vital Signs 01/29/18 15:37 01/29/18 16:00 01/29/18 16:47 Temperature 98.3 F Pulse Rate 86 Respiratory Rate 18 18 Blood Pressure 143/79 H Pulse Oximetry 93 L 95 01/29/18 20:00 01/29/18 20:42 01/30/18 00:00 Temperature 98.3 F 98.5 F Pulse Rate 84 70 Respiratory Rate 18 20 18 Blood Pressure 142/84 H 146/78 H Pulse Oximetry 94 L 98 01/30/18 07:40 01/30/18 08:00 Temperature 97.8 F Pulse Rate 81 Respiratory Rate 18 18 Blood Pressure 126/71 Pulse Oximetry 95 Intake & Output 01/29/18 01/30/1801/30/18 18:59 06:59 18:59 Intake Total 720 / 720 Balance 720 / 720 Weight 94.8 kg Intake: Oral 720 / 720 Other: # Voids 8 4 Date of Last Bowel Movement 01/26/18 01/29/18 01/29/18 # Bowel Movements 1 Narrative: GENERAL: Alert, oriented x3, NAD. SKIN: Warm and dry. HEAD: Normocephalic. Atraumatic EYES: No scleral icterus. No injection or drainage. NECK: Supple, trachea midline. No JVD or lymphadenopathy. CARDIOVASCULAR: Regular rate and rhythm without murmurs, gallops, or rubs. RESPIRATORY: Breath sounds equal bilaterally. No accessory muscle use. GASTROINTESTINAL: Abdomen soft, non-tender, nondistended. MUSCULOSKELETAL: No cyanosis, or edema. Status post left lower extremity surgery. Left upper extremity dressed also-left lower extremity is dressed BACK: Nontender without obvious deformity. No CVA tenderness. Insight and judgment is good Mood and behaviors appropriate Results - Labs CBC & Chem 7: 01/30/18 04:48 01/30/18 04:48 Laboratory Results - last 24 hr 01/29/18 01/30/18 01/30/18 06:50 04:48 04:48 WBC 6.7 RBC 3.18 L Hgb 10.0 L Hct 29.3 L MCV 92.3 MCH 31.3 MCHC 34.0 RDW 13.4 Plt Count 383 MPV 8.0 Neut % (Auto) 56.3 Lymph % (Auto) 25.4 [place] % (Auto) 9.1 H Eos % (Auto) 8.4 H Baso % (Auto) 0.8 Neut # (Auto) 3.8 Lymph # (Auto) 1.7 [place] # (Auto) 0.6 Eos # (Auto) 0.6 H Baso # (Auto) 0.1 WBC Differential . Differential Comment Auto diff final Sodium 137 Potassium 3.8 Chloride 101 Carbon Dioxide 27.9 Anion Gap 8 BUN 16 Creatinine 0.84 Estimated GFR 68 L Random Glucose 80 Hemoglobin A1c 5.0 Calcium 8.7 Phosphorus 4.4 D Magnesium 2.3 Total Bilirubin 0.4 AST 30 ALT 34 Alkaline Phosphatase 85 Total Protein 6.6 Albumin 2.7 L - Procedures cc: Zeb De Luna MD Preoperative Diagnosis: Left comminuted proximal tibial shaft fracture Postoperative Diagnosis: Same Date of procedure: 01/27/18 Procedure: Left tibia fracture fixation with intramedullary nail Anesthesia: ELISA Surgeon: Zeb De Luna MD Fireperson: EDGARDO Ratliff The surgical procedure was assisted by my Advanced Registered Nurse Practitioner. My PAGE MAKEUP SYSTEM OPERATOR presence was necessary throughout this case for the manipulation and positioning of the surgical extremity. My PAGE MAKEUP SYSTEM OPERATOR was assisting me throughout the duration of this procedure. The skill set of an Advance Registered Nurse Practitioner was medically necessary to complete this procedure. During the surgical case, the surgical scrub technician was working at the back table and the Advance Registered Nurse Practitioner was directly assisting me. Operation and Findings: Implants: Synthes tibal nail, size: 345 x 12 Estimated blood loss: 300 cc The patient received intravenous clindamycin and vancomycin. After the appropriate anesthesia was administered, the patient was prepped and draped in the supine position in the usual sterile fashion. Skin assessment showed mild to moderate diffuse swelling. Previous medial incision was having a little bit of serosanguineous drainage with no erythema or purulence. We made incision proximal to the patella. We carefully dissected down to the quadriceps tendon. An in-line longitudinal split to the quadriceps tendon was completed. The capsule of the knee was entered. We placed the smooth trocar within the knee joint down to the proximal tibia, protecting the patella and trochlea during the case. We then reduced the tibia fracture manually and under fluoroscopic imaging. We were able to achieve essentially anatomic alignment with the closed reduction. We held this reduced in anatomic alignment during reaming. A ball-tipped guidewire was placed into the tibial shaft, passing the fracture site. This was placed down to the distal physeal line of the tibia. We then sequentially reamed the tibia to 1 mm larger than the implanted tibial nail. We obtained good cortical chatter. We measured the appropriate length for the tibial nail. We then passed the tibial nail into the medullary canal of the tibia. While we were doing this we found that the fracture significantly displaced due to forces from the nail. We remove the nail and placed a blocking wire. We put the nail back into position and found better alignment but still fairly significant displacement. We remove the nail again and placed a second blocking wire. This time we had overall much better alignment. There was only mild displacement on the lateral view with no angulation in the AP view was anatomic with no angulation. We did make a separate incision to place a ball spike pusher on the anterior aspect of the proximal tibia near the tibial tubercle but this did not further reduce the fracture at all. The nail was placed essentially flush to the proximal bone so that we could use as many of the proximal screws as possible. The nail was secured proximally with 4 screws, using the associated jig as a guide.We removed the jig and placed in an Which helped create the most proximal screw into a locking screw. We used the perfect bishop paiute technique distally to visualize the distal tibial screw holes. We placed 1 screw distally. We thoroughly irrigated the incisions including a lavage of the arthrotomy site proximally. The quadriceps split was closed with a #1 Vicryl. The remaining incisions were closed with #2-0 Vicryl, followed by clara. We placed a knee immobilizer on the leg. 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 Chemical DVT prophylaxis will be performed with Lovenox for 3 weeks followed by aspirin for 1 month. Documented By: Zeb De Luna MD 01/27/18 0959 Assessment and Plan - Plan Ms. Cervantes is a pleasant 67-year-old female with a history of hypertension, hyperlipidemia, anxiety/depression who presented to the emergency department on the advice of her orthopedic surgeon due to left leg pain. Workup indicated left tibia and fibula fracture. Oblique fracture of left tibia and fibula Acetaminophen, Percocet, morphine for pain management Bowel regimen Orthopedic surgery consult. Patient is status post left tibia fracture fixation with intramedullary nail. Physical therapy evaluation pending. Will need SNF. -Has nonweightbearing status to the left lower extremity History of fracture of left upper extremity status post repair of the ulnar area -has nonweightbearing status to the left upper extremity Severe hypokalemia Probable acute kidney injury Hyponatremia Hypokalemia resolved. Potassium today 3.6. -Creatinine improved from 1.47 --> 1.05. Sodium improved 128 --> 137. Hypertension Hyperlipidemia GERD Anxiety/depression Continue home medications amlodipine, Seroquel, venlafaxine, PPI, statin Hypothyroidism we will start Synthroid 50 MCG's p.o. daily Full code. Lovenox. AM LABS Code Status: FULL CODE Discussed Condition With: RN AND PT AND CM Discharge Planning: ONCE CLEARED BY [employer] FOR SNF
--- NOTE | 2018-01-30 12:21 | P.DS ---
Date of admission: 01/26/18 14:06 Primary care physician: Giovana De La Fuente MD Attending physician on discharge: Joe Reyes Anticipated date of discharge: 01/30/18 Brief History from admission: Ms Cervantes is a pleasant 67-year-old female with PMH of HTN, GERD, HLD, anxiety, depression who presented to the emergency department on 01/26/2018 on the advice of our orthopedic surgeon. She recently underwent a bone graft from her left leg to her left arm. She complains of significant pain in her left leg. She went to see her orthopedic surgeon who directed patient to the ED. Left knee x- ray shows oblique fractures. Patient denies any chest pain, shortness of breath , cough, fever, chills. Denies any abdominal pain, dysuria, hematuria. No changes in bowel or bladder habits. PMH: Hypertension, hyperlipidemia, anxiety/depression PSH: Back surgery, bunionectomy Social history: Does not smoke, uses alcohol socially Family history: No family history of Alzheimer's or Parkinson's. Patient update on day of discharge: Ms Cervantes is a pleasant 67-year-old female with PMH of HTN, GERD, HLD, anxiety, depression who presented to the emergency department on 01/26/2018 on the advice of our orthopedic surgeon. She recently underwent a bone graft from her left leg to her left arm. She complains of significant pain in her left leg. She went to see her orthopedic surgeon who directed patient to the ED. Left knee x- ray shows oblique fractures. Patient denies any chest pain, shortness of breath , cough, fever, chills. Denies any abdominal pain, dysuria, hematuria. No changes in bowel or bladder habits. PMH: Hypertension, hyperlipidemia, anxiety/depression PSH: Back surgery, bunionectomy Social history: Does not smoke, uses alcohol socially Family history: No family history of Alzheimer's or Parkinson's. 11-2 Follow up for left comminuted proximal tibial shaft fracture. Patient is status post surgical intervention. Patient is currently doing well. No fever or chills. 11-3 SEEN BY ORTHO WANTS TO GO TO [facility] FOR REHAB AWAIT HUMAN CLEARANCE AND ACCEPTANCE AM LABS NWB ON LEFT LE FRACTURE LEFT UE DW FAMILY WILL NEED SNF/REHAB DC TO SNF ONCE CLEARED AND ACCEPTED PER [employer] 11-4 has been cleared by orthopedic surgery for discharge to SNF has nonweightbearing status to left upper extremity and left lower extremity Continue pain control Await [employer] clearance and acceptance for [facility] Continue a.m. labs We will need SNF at discharge 01-30 DC TO SNF WHEN [employer] APPROVES IT DW RN AND PT AND CM DS: Diagnosis - Discharge Diagnosis (1) Fracture of left tibia Status: Acute (2) Fracture of ulna, left, closed Status: Acute (3) Hypertension Status: Chronic (4) GERD (gastroesophageal reflux disease) Status: Chronic (5) Hyperlipidemia Status: Chronic DS: Medications - Discharge Medications Prescriptions: aspirin 325 mg PO DAILY 30 Days #30 tab clonazepam 0.5 mg PO BID #60 tab enoxaparin [Lovenox] 40 mg SUB-Q DAILY 20 Days #20 units oxycodone-acetaminophen [Percocet] See Label Instructions .ROUTE .COMPLEX PRN # 50 tab PRN Reason: Pain DS: Summary Hospital Course: Ms Cervantes is a pleasant 67-year-old female with PMH of HTN, GERD, HLD, anxiety, depression who presented to the emergency department on 01/26/2018 on the advice of our orthopedic surgeon. She recently underwent a bone graft from her left leg to her left arm. She complains of significant pain in her left leg. She went to see her orthopedic surgeon who directed patient to the ED. Left knee x- ray shows oblique fractures. Patient denies any chest pain, shortness of breath , cough, fever, chills. Denies any abdominal pain, dysuria, hematuria. No changes in bowel or bladder habits. PMH: Hypertension, hyperlipidemia, anxiety/depression PSH: Back surgery, bunionectomy Social history: Does not smoke, uses alcohol socially Family history: No family history of Alzheimer's or Parkinson's. 11- Follow up for left comminuted proximal tibial shaft fracture. Patient is status post surgical intervention. Patient is currently doing well. No fever or chills. 11-3 SEEN BY ORTHO WANTS TO GO TO [facility] FOR REHAB AWAIT [employer] CLEARANCE AND ACCEPTANCE AM LABS NWB ON LEFT LE FRACTURE LEFT UE DW FAMILY WILL NEED SNF/REHAB DC TO SNF ONCE CLEARED AND ACCEPTED PER [employer] 01-29 has been cleared by orthopedic surgery for discharge to SNF has nonweightbearing status to left upper extremity and left lower extremity Continue pain control Await [employer] clearance and acceptance for [facility] Continue a.m. labs We will need SNF at discharge 11-5 DC TO SNF WHEN [employer] APPROVES IT KELSY RN AND PT AND CM E-ISHMAELE Prescription Drug Monitoring Database has been queried and verified prior to prescribing the controlled substance. Acute pain exception. This patient has normal, predicted, physiological, and time limited response to an adverse mechanical stimulus associated with surgery, trauma, or acute illness as described in my notes. There is a lack of alternative treatment options other than to include the prescribed narcotic treatment for this condition. - Time Spent with Patient Total time spent providing and/or coordinating discharge services: Greater than 30 minutes - Quality: VTE Deep Vein Thrombosis/Pulmonary Embolism Present on Admission: No Exam Vital signs: Vital Signs 01/29/18 15:37 01/29/18 16:00 01/29/18 16:47 Temperature 98.3 F Pulse Rate 86 Respiratory Rate 18 18 Blood Pressure 143/79 H Pulse Oximetry 93 L 95 01/29/18 20:00 01/29/18 20:42 01/30/18 00:00 Temperature 98.3 F 98.5 F Pulse Rate 84 70 Respiratory Rate 18 20 18 Blood Pressure 142/84 H 146/78 H Pulse Oximetry 94 L 98 01/30/18 07:40 01/30/18 08:00 Temperature 97.8 F Pulse Rate 81 Respiratory Rate 18 18 Blood Pressure 126/71 Pulse Oximetry 95 Intake & Output 01/29/18 01/30/18 01/30/18 18:59 06:59 18:59 Intake Total 720 / 720 Balance 720 / 720 Weight 94.8 kg Intake: Oral 720 / 720 Other: # Voids 8 4 Date of Last Bowel Movement 01/26/18 01/29/18 01/29/18 # Bowel Movements 1 Narrative: GENERAL: Alert, oriented x3, NAD. SKIN: Warm and dry. HEAD: Normocephalic. Atraumatic EYES: No scleral icterus. No injection or drainage. NECK: Supple, trachea midline. No JVD or lymphadenopathy. CARDIOVASCULAR: Regular rate and rhythm without murmurs, gallops, or rubs. RESPIRATORY: Breath sounds equal bilaterally. No accessory muscle use. GASTROINTESTINAL: Abdomen soft, non-tender, nondistended. MUSCULOSKELETAL: No cyanosis, or edema. Status post left lower extremity surgery. Left upper extremity dressed also-left lower extremity is dressed BACK: Nontender without obvious deformity. No CVA tenderness. Insight and judgment is good Mood and behaviors appropriate Results Procedures completed during hospitalization: cc: Zeb De Luna MD Preoperative Diagnosis: Left comminuted proximal tibial shaft fracture Postoperative Diagnosis: Same Date of procedure: 01/27/18 Procedure: Left tibia fracture fixation with intramedullary nail Anesthesia: GETA Surgeon: Zeb De Luna MD Aeronautical Design Engineer: EDGARDO Ratliff The surgical procedure was assisted by my Advanced Registered Nurse Practitioner. My RN IMAGING presence was necessary throughout this case for the manipulation and positioning of the surgical extremity. My RN IMAGING was assisting me throughout the duration of this procedure. The skill set of an Advance Registered Nurse Practitioner was medically necessary to complete this procedure. During the surgical case, the surgical corsetier was working at the back table and the Advance Registered Nurse Practitioner was directly assisting me. Operation and Findings: Implants: Synthes tibal nail, size: 345 x 12 Estimated blood loss: 300 cc The patient received intravenous clindamycin and vancomycin. After the appropriate anesthesia was administered, the patient was prepped and draped in the supine position in the usual sterile fashion. Skin assessment showed mild to moderate diffuse swelling. Previous medial incision was having a little bit of serosanguineous drainage with no erythema or purulence. We made incision proximal to the patella. We carefully dissected down to the quadriceps tendon. An in-line longitudinal split to the quadriceps tendon was completed. The capsule of the knee was entered. We placed the smooth trocar within the knee joint down to the proximal tibia, protecting the patella and trochlea during the case. We then reduced the tibia fracture manually and under fluoroscopic imaging. We were able to achieve essentially anatomic alignment with the closed reduction. We held this reduced in anatomic alignment during reaming. A ball-tipped guidewire was placed into the tibial shaft, passing the fracture site. This was placed down to the distal physeal line of the tibia. We then sequentially reamed the tibia to 1 mm larger than the implanted tibial nail. We obtained good cortical chatter. We measured the appropriate length for the tibial nail. We then passed the tibial nail into the medullary canal of the tibia. While we were doing this we found that the fracture significantly displaced due to forces from the nail. We remove the nail and placed a blocking wire. We put the nail back into position and found better alignment but still fairly significant displacement. We remove the nail again and placed a second blocking wire. This time we had overall much better alignment. There was only mild displacement on the lateral view with no angulation in the AP view was anatomic with no angulation. We did make a separate incision to place a ball spike pusher on the anterior aspect of the proximal tibia near the tibial tubercle but this did not further reduce the fracture at all. The nail was placed essentially flush to the proximal bone so that we could use as many of the proximal screws as possible. The nail was secured proximally with 4 screws, using the associated jig as a guide.We removed the jig and placed in an Which helped create the most proximal screw into a locking screw. We used the perfect [place] technique distally to visualize the distal tibial screw holes. We placed 1 screw distally. We thoroughly irrigated the incisions including a lavage of the arthrotomy site proximally. The quadriceps split was closed with a #1 Vicryl. The remaining incisions were closed with #2-0 Vicryl, followed by clara. We placed a knee immobilizer on the leg. 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 Chemical DVT prophylaxis will be performed with Lovenox for 3 weeks followed by aspirin for 1 month. Documented By: Zeb De Luna MD 01/27/18 0959 Completed studies during hospitalization: Laboratory Results WBC 6.7 th/mm3 (4.0-11.0) 01/30/18 04:48 RBC 3.18 mil/mm3 (4.00-5.30) L 01/30/18 04:48 Hgb 10.0 gm/dL (11.6-15.3) L 01/30/18 04:48 Hct 29.3 % (35.0-46.0) L 01/30/18 04:48 MCV 92.3 fL (80.0-100.0) 01/30/18 04:48 MCH 31.3 pg (27.0-34.0) 01/30/18 04:48 MCHC 34.0 % (32.0-36.0) 01/30/18 04:48 RDW 13.4 % (11.6-17.2) 01/30/18 04:48 Plt Count 383 th/mm3 (150-450) 01/30/18 04:48 MPV 8.0 fL (7.0-11.0) 01/30/18 04:48 Neut % (Auto) 56.3 % (16.0-70.0) 01/30/18 04:48 Lymph % (Auto) 25.4 % (9.0-44.0) 01/30/18 04:48 [place] % (Auto) 9.1 % (0.0-8.0) H 01/30/18 04:48 Eos % (Auto) 8.4 % (0.0-4.0) H 01/30/18 04:48 Baso % (Auto) 0.8 % (0.0-2.0) 01/30/18 04:48 Neut # (Auto) 3.8 th/mm3 (1.8-7.7) 01/30/18 04:48 Lymph # (Auto) 1.7 th/mm3 (1.0-4.8) 01/30/18 04:48 [place] # (Auto) 0.6 th/mm3 (0.0-0.9) 01/30/18 04:48 Eos # (Auto) 0.6 th/mm3 (0.0-0.4) H 01/30/18 04:48 Baso # (Auto) 0.1 th/mm3 (0.0-0.2) 01/30/18 04:48 WBC Differential . 01/30/18 04:48 Differential Comment Auto diff final 01/30/18 04:48 Sodium 137 meq/L (136-145) 01/30/18 04:48 Potassium 3.8 meq/L (3.5-5.1) 01/30/18 04:48 Chloride 101 meq/L (98-107) 01/30/18 04:48 Carbon Dioxide 27.9 meq/L (21.0-32.0) 01/30/18 04:48 Anion Gap 8 meq/L (5-15) 01/30/18 04:48 BUN 16 mg/dL (7-18) 01/30/18 04:48 Creatinine 0.84 mg/dL (0.50-1.00) 01/30/18 04:48 Estimated GFR 68 mL/min (>89) L 01/30/18 04:48 Random Glucose 80 mg/dL (74-106) 01/30/18 04:48 Hemoglobin A1c 5.0 % (4.3-6.0) 01/29/18 06:50 Calcium 8.7 mg/dL (8.5-10.1) 01/30/18 04:48 Phosphorus 4.4 mg/dL (2.5-4.9) D 01/30/18 04:48 Magnesium 2.3 mg/dL (1.5-2.5) 01/30/18 04:48 Total Bilirubin 0.4 mg/dL (0.2-1.0) 01/30/18 04:48 AST 30 U/L (15-37) 01/30/18 04:48 ALT 34 U/L (10-53) 01/30/18 04:48 Alkaline Phosphatase 85 U/L (45-117) 01/30/18 04:48 Total Protein 6.6 g/dL (6.4-8.2) 01/30/18 04:48 Albumin 2.7 g/dL (3.4-5.0) L 01/30/18 04:48 TSH 5.630 uIU/mL (0.358-3.740) H 01/29/18 06:20 Free T4 1.29 ng/dL (0.76-1.46) 01/29/18 06:20 Urine Color Yellow (Yellw/Straw) 01/26/18 18:00 Urine Clarity Clear (Clear) 01/26/18 18:00 Urine pH 6.0 (5.0-8.5) 01/26/18 18:00 Ur Specific [place] 1.009 (1.002-1.035) 01/26/18 18:00 Urine Protein 30 mg/dL (Neg-Trace) H 01/26/18 18:00 Urine Glucose (UA) Negative mg/dL (Negative) 01/26/18 18:00 Urine Ketones Negative mg/dL (Negative) 01/26/18 18:00 Urine Occult Blood Small (Negative) H 01/26/18 18:00 Urine Nitrate Negative (Negative) 01/26/18 18:00 Urine Bilirubin Negative (Negative) 01/26/18 18:00 Urine Urobilinogen Less than 2 mg/dL (Less than 2) 01/26/18 18:00 Ur Leukocyte Esterase Small (Negative) H 01/26/18 18:00 Urine RBC Less than 1 /hpf (0-3) 01/26/18 18:00 Urine WBC 8 /hpf (0-5) H 01/26/18 18:00 Ur Squamous Epith Cells <1 /hpf (0-5) 01/26/18 18:00 Hyaline Casts 1 /lpf (0-3) 01/26/18 18:00 Urine Mucus Few /lpf (Occasional) H 01/26/18 18:00 Micro UA Comment Culture not ind 01/26/18 18:00 Ur Microscopic Review Not Reportable 01/26/18 18:00 Urine Culture Comments Culture not ind 01/26/18 18:00 Impressions Chest X-Ray 01/26/18 13:18 CONCLUSION: 1. No evidence for infiltrate. 2. Nodular density right lower lobe. Nonemergent outpatient chest recommended. Knee X-Ray 01/26/18 13:51 CONCLUSION: Oblique fractures involving both the tibia and the fibula. Tibia/Fibula X-Ray 01/27/18 00:00 CONCLUSION: Improved anatomic alignment following left tibia ORIF, as above. Labs on day of discharge: Labs from last 24 hours 01/30/18 01/30/18 01/29/18 04:48 04:48 06:50 WBC 6.7 RBC 3.18 L Hgb 10.0 L Hct 29.3 L MCV 92.3 MCH 31.3 MCHC 34.0 RDW 13.4 Plt Count 383 MPV 8.0 Neut % (Auto) 56.3 Lymph % (Auto) 25.4 [place] % (Auto) 9.1 H Eos % (Auto) 8.4 H Baso % (Auto) 0.8 Neut # (Auto) 3.8 Lymph # (Auto) 1.7 [place] # (Auto) 0.6 Eos # (Auto) 0.6 H Baso # (Auto) 0.1 WBC Differential . Differential Comment Auto diff final Sodium 137 Potassium 3.8 Chloride 101 Carbon Dioxide 27.9 Anion Gap 8 BUN 16 Creatinine 0.84 Estimated GFR 68 L Random Glucose 80 Hemoglobin A1c 5.0 Calcium 8.7 Phosphorus 4.4 D Magnesium 2.3 Total Bilirubin 0.4 AST 30 ALT 34 Alkaline Phosphatase 85 Total Protein 6.6 Albumin 2.7 L - Impressions ITS Impressions Chest X-Ray 01/26/18 13:18 CONCLUSION: 1. No evidence for infiltrate. 2. Nodular density right lower lobe. Nonemergent outpatient chest recommended. Knee X-Ray 01/26/18 13:51 CONCLUSION: Oblique fractures involving both the tibia and the fibula. Tibia/Fibula X-Ray 01/27/18 00:00 CONCLUSION: Improved anatomic alignment following left tibia ORIF, as above. Discharge Plan - Discharge Disposition Patient Disposition: Discharge to SNF - Discharge Condition Condition: Good - Discharge Order Discharge Orders: Discharge Order (Routine); Ordered 01/30/18 Ordered By: Joe Reyes - Discharge Details Anticipated Discharge Date: 01/30/18 Discharge Comment: dc to snf when bed available - Physicians Team Primary Care Provider: Giovana De La Fuente Attending Provider: Joe Reyes Other Providers: Zeb De Luna MD ; [employer] ; [facility],Agency
--- NOTE | 2018-01-30 12:22 | P.PNOP ---
Subjective Interval history: The patient is resting comfortably in bed with mild pain to the LLE. Patient states the pain has been managed with pain medication and that the leg feels better since surgery. Physical Exam Vital signs: Vital Signs 01/29/18 15:37 01/29/18 16:00 01/29/18 16:47 Temperature 98.3 F Pulse Rate 86 Respiratory Rate 18 18 Blood Pressure 143/79 H Pulse Oximetry 93 L 95 01/29/18 20:00 01/29/18 20:42 01/30/18 00:00 Temperature 98.3 F 98.5 F Pulse Rate 84 70 Respiratory Rate 18 20 18 Blood Pressure 142/84 H 146/78 H Pulse Oximetry 94 L 98 01/30/18 07:40 01/30/18 08:00 Temperature 97.8 F Pulse Rate 81 Respiratory Rate 18 18 Blood Pressure 126/71 Pulse Oximetry 95 Intake & Output 01/29/18 01/30/18 01/30/18 18:59 06:59 18:59 Intake Total 720 / 720 Balance 720 / 720 Weight 94.8 kg Intake: Oral 720 / 720 Other: # Voids 8 4 Date of Last Bowel Movement 01/26/18 01/29/18 01/29/18 # Bowel Movements 1 Narrative: The patient's dressing is clean, dry, and intact. EHL/TA/G are intact. 2+ pedal pulse. The patient's calf is soft and nontender. Sensation is intact to light touch distally. Knee immobilizer is in place. Results - Labs CBC & Chem 7: 01/30/18 04:48 01/30/18 04:48 Laboratory Results - last 24 hr 01/29/18 01/30/18 01/30/18 06:50 04:48 04:48 WBC 6.7 RBC 3.18 L Hgb 10.0 L Hct 29.3 L MCV 92.3 MCH 31.3 MCHC 34.0 RDW 13.4 Plt Count 383 MPV 8.0 Neut % (Auto) 56.3 Lymph % (Auto) 25.4 [place] % (Auto) 9.1 H Eos % (Auto) 8.4 H Baso % (Auto) 0.8 Neut # (Auto) 3.8 Lymph # (Auto) 1.7 [place] # (Auto) 0.6 Eos # (Auto) 0.6 H Baso # (Auto) 0.1 WBC Differential . Differential Comment Auto diff final Sodium 137 Potassium 3.8 Chloride 101 Carbon Dioxide 27.9 Anion Gap 8 BUN 16 Creatinine 0.84 Estimated GFR 68 L Random Glucose 80 Hemoglobin A1c 5.0 Calcium 8.7 Phosphorus 4.4 D Magnesium 2.3 Total Bilirubin 0.4 AST 30 ALT 34 Alkaline Phosphatase 85 Total Protein 6.6 Albumin 2.7 L - Procedures Open reduction and internal fixation with intramedullary nail of left tibia fracture. Closed reduction of proximal fibula fracture Assessment and Plan - Assessment and Plan POD #2 Left Tibial Nail, Dr De Luna Previous left ORIF of midshaft ulna fracture Ortho status stable. 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 DVT prophylaxis Lovenox followed by aspirin. Daily dressing changes. CKS at all times. If ice machine used -make sure there is a protective layer/towel to protect skin once cyndi wrap removed. Clear for discharge from an orthopedic standpoint to rehab ([facility]). Follow-up with Dr. De Luna or Alverto Hollis APRN in 2 weeks
== END 2018-01-30 16:51 ==
LOC: NEPC 12:08 → NEDA 14:06 → N06 16:45
PROVIDERS: ADMIT Hospitalist; ATTEND Hospitalist
PROC: ORIFTIB (2018-01-27 07:23)